=== PATIENT | male | born 1975 | race Caucasian/White ===

== ENCOUNTER 2022-07-12 10:59 | Outpatient (REF) | payer OTHER, SELFPAY ==
[2022-07-13 05:15] LABS: HBS Num1 3.37 mIU/mL (0-7.99); HBsAGNum1 0.16 S/CO (0.00-0.99); HIV AB/AG Nonreactive (Nonreactive); HIV Num 1 0.08 S/CO (0.00-0.99); Hepatitis B Core Antibody Nonreactive (Nonreactive); Hepatitis B Surface Antigen Negative (Negative); ~HepC Num1 0.07 S/CO (0.00-0.79); ~Hepatitis B Surface Antibody NONREACTIVE (Nonreactive); ~Hepatitis C Antibody Nonreactive (Nonreactive)
[2022-07-13 05:46] LABS: Syphilis Screen Nonreactive (Nonreactive)
== END 2022-07-12 11:00 | disposition home or self-care (01) ==
LOC: HO.WFDLDS 10:59
PROVIDERS: Visit Provider Nurse Practitioner Family
DX: Z11.3 Encounter for screening for infections with a predominantly sexual mode of transmission (principal); Z11.4 Encounter for screening for human immunodeficiency virus [HIV]
CPT/HCPCS: 36415; 86704; 86706; 86780; 86803; 87340; 87389

== ENCOUNTER 2022-07-12 10:59 | Outpatient (REF) | payer OTHER, SELFPAY ==
[2022-07-12 15:35] LABS: CT PCR NOT DETECTED (Not Detect.); NG PCR NOT DETECTED (Not Detect.)
== END 2022-07-12 11:00 | disposition home or self-care (01) ==
LOC: HO.LAB 10:59
PROVIDERS: Visit Provider Nurse Practitioner Family
DX: Z11.3 Encounter for screening for infections with a predominantly sexual mode of transmission (principal)
CPT/HCPCS: 87491; 87591

== ENCOUNTER 2023-03-17 10:18 | Outpatient (REF) | payer OTHER, SELFPAY ==
[2023-03-17 10:29] LABS: MANUAL DIFF FLAG NO
[2023-03-17 10:59] LABS: Basophils Percent Auto 0.4 % (0-2); Eosinophils Absolute Auto 0.1 X10*3/uL (0.0-0.4); Eosinophils Percent Auto 1.8 % (0-4); Hematocrit 46.4 % (42.0-52.0); Hemoglobin 15.1 g/dl (14.0-18.0); Imm Gran Abs Auto 0.02 X10*3/uL (0.00-0.03); Imm Gran Pct Auto 0.4 % (0.0-0.4); Lymphocytes Absolute Auto 1.3 X10*3/uL (1.2-4.9); Lymphocytes Percent Auto 26.2 % (20-40); Mean Corpuscular HGB Conc 32.5 g/dl (31.0-36.0); Mean Corpuscular Hemoglobin 29.8 pg (27.0-33.0); Mean Corpuscular Volume 91.7 fL (80.0-98.0); Mean Platelet Volume 10.8 fL (9.4-12.4); Monocytes Absolute Auto 0.5 X10*3/uL (0.1-1.2); Monocytes Percent Auto 9.5 % (2-11); Neutrophils Percent Auto 61.7 % (45-73); Platelet Count 171 X10*3/uL (160-400); Red Blood Count 5.06 X10*6/uL (4.60-5.80); Red Cell Distribution Width 12.4 % (11.0-16.0); White Blood Count 4.9 X10*3/uL (4.8-10.8)
[2023-03-17 11:59] LABS: Alanine Aminotransferase 31 U/L (0-40); Albumin Level 4.4 g/dL (3.5-5.0); Alkaline Phosphatase 89 U/L (39-117); Anion Gap 11 (12-20); Aspartate Amino Transferase 25 U/L (5-37); Bilirubin Total 0.7 mg/dL (0.0-1.0); Blood Urea Nitrogen 28 mg/dL (9-16); Calcium 9.5 mg/dL (8.4-10.2); Carbon Dioxide 29 mmol/L (22-29); Chloride 106 mmol/L (96-108); Cholesterol 251 mg/dL; Estimated Glomerular Filt Rate > 60; Glucose Random 93 mg/dL (60-115); HDL Cholesterol 60 mg/dL; LDL Cholesterol Calculated 173 mg/dl; Potassium 4.4 mmol/L (3.3-5.1); Sodium 142 mmol/L (135-145); Total Protein 7.4 g/dL (6.5-8.0); Triglycerides 93 mg/dL
[2023-03-17 12:27] LABS: Folate 19.9 ng/mL (> or = 4.0); Free T4 (Free Thyroxine) 0.87 ng/dL (0.71-1.85); Thyroid Stimulating Hormone 1.84 uIU/mL (0.32-4.0); Vitamin B12 570 pg/mL (200-900)
== END 2023-03-17 10:19 | disposition home or self-care (01) ==
LOC: HO.LAB 10:18
PROVIDERS: PCP Internal Medicine; Visit Provider Internal Medicine
DX: I10 Essential (primary) hypertension (principal); E78.00 Pure hypercholesterolemia, unspecified
CPT/HCPCS: 36415; 80053; 80061; 82607; 82746; 84439; 84443; 85025

== ENCOUNTER 2023-05-08 14:24 | Outpatient (AMB) | payer OTHER, SELFPAY ==
[2023-05-08 14:28] VITALS: BMI 25.6
--- NOTE | 2023-05-08 14:28 | MHC.PC.OV ---
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 Accompanied by: Self / Same As Patient Allergies ciprofloxacin [Cipro] Allergy (Unknown, Verified 05/08/23 14:36) joint pain Tobacco use date assessed: 05/08/23 Dental Screening Dental Screen Date: 05/08/23 Did you have a dental visit in the last 12 months?: Yes Did you have a dental problem in the last 6 months where you did not have access to dental care?: No Was dental information given to patient?: Patient has dentist HPI HTN, CARMELITA HPI Details 47-year-old male with GERD hypertension generalized anxiety disorder migraine coming in for follow-up last seen for physical exam in February 2023 blood work was requested and referral to Gastroenterology patient has been started on sertraline metoprolol and rizatriptan. [facility] Medical History (Updated 05/08/23 @ 14:53 by Janene Zheng MD) Blood pressure elevated without history of HTN Chlamydia GERD (gastroesophageal reflux disease) Gonorrhea Hepatitis B surface antigen positive by [facility] History of chlamydia Migraine Renal calculi Routine screening for STI (sexually transmitted infection) Varicocele Family History Mother Uterine cancer Father No problems noted. Sister Substance use disorder Mental health disorder Social History Housing: House Patient Tobacco Use Status: Former Tobacco user Tobacco use type: Cigarette e-Cigarette/Vaping Use: Never Used Second Hand Smoke Exposure: No Current occupational status: employed Cognitive needs: No Hearing needs: No Vision needs: No Questionnaire PHQ-9 Over the last 2 weeks, how often have you been bothered by any of the following problems? 1. Little interest or pleasure in doing things: not at all 2. Feeling down, depressed, or hopeless: not at all 3. Trouble falling or staying asleep, or sleeping too much: not at all 4. Feeling tired or having little energy: not at all 5. Poor appetite or overeating: not at all 6. Feeling bad about yourself - or that you are a failure or have let yourself or your family down: not at all 7. Trouble concentrating on things, such as reading the newspaper or watching television: not at all 8. Moving or speaking so slowly that other people could have noticed. Or the opposite - being so fidgety or restless that you have been moving around a lot more than usual: not at all 9. Thoughts that you would be better off or of hurting yourself in some way: not at all Total score: 0 Depression Screening Interpretation: Negative Source: Developed by Drs. Mathew Nieves, Caitie Rubio, Francisco Maya and colleagues, with an educational remy from [employer]. Thrive Questionnaire Date Thrive assessed: 05/08/23 I am a: Patient What is your living situation today?: I have a steady place to live Within the past 12 months, did the food you bought not last and you didn't have the money to get more?: Never true Within the past 12 months, did you worry whether your food would run out before you got money to buy more?: Never true Do you have trouble paying for medicines?: No Do you have trouble getting transportation to medical appointments?: No Do you have trouble paying your heating and electricity bill?: No Do you have trouble taking care of your child, family member or friend?: No Do you have trouble with day-to-day activities such as bathing, preparing meals, shopping, managing finances, etc.?: No Are you currently unemployed and looking for a job?: No Are you interested in more education?: No Currently or been in a relationship where the following occur: no concerns reported AUDIT C Alcohol Use Questionnaire (AUDIT-C) 1. How often do you have a drink containing alcohol?: Monthly or less 2. How many drinks containing alcohol do you have on a typical day when you are drinking?: 1 or 2 3. How often do you have six or more drinks on one occasion?: Never Total Score: 1 CARMELITA-7 AMB Questionnaire CARMELITA-7 Date CARMELITA - 7 assessed: 05/08/23 Feeling nervous, anxious, or on edge: 2 = More than half the days Not being able to stop or control worryin = More than half the days Worrying too much about different things: 2 = More than half the days Trouble relaxin = More than half the days Being so restless that it is hard to sit still: 2 = More than half the days Becoming easily annoyed or irritable: 2 = More than half the days Feeling afraid as if something awful might happen: 1 = Several days Total CARMELITA-7 score (0-4 normal; 5-9 mild; 10-14 moderate; 15-21 severe): 13 Source: Developed by Drs. Mathew Nieves, Caitie Rubio, Francisco Maya and colleagues, with an educational remy from [employer]. Physical exam (Primary Care) Vital Signs: Last Vital Signs Pulse 60 05/08/23 14:35 BP 138/88 05/08/23 14:35 Pulse Ox 99 05/08/23 14:35 Oxygen Delivery Method Room Air 05/08/23 14:35 BMI result Body Mass Index 25.6 Tobacco/Smoking Status: Tobacco use Status Tobacco use date assessed 05/08/23 05/08/23 14:29 Patient Tobacco Use Status Former Tobacco user 05/08/23 14:29 Tobacco use type Cigarette 05/08/23 14:29 e-Cigarette/Vaping Use Never Used 05/08/23 14:29 PHQ-9: PHQ-9 Score PHQ-9: Total score 0 05/08/23 14:42 Depression Screening Interpretation: Negative Thrive Assessment: Date of Thrive Assessment Date Thrive assessed 05/08/23 05/08/23 14:29 Currently or been in a relationship where the following occur: no concerns reported Const General: alert; No acute distress Eyes Conjunctivae: conjunctivae normal Resp Auscultation: clear to auscultation bilaterally Cardio Rate: regular rate Rhythm: regular rhythm GI Inspection: Yes normal to inspection Extrem General: Yes normal to inspection and No edema Assessment and Plan Assessment & Plan (1) Hypercholesterolemia: Code(s): E78.00 - Pure hypercholesterolemia, unspecified Plan: Avoid fried foods, chicken skin, eggs, butter margarine, pastries and meat. Be it pork or beef they have a lot of cholesterol LDL goal of less than 130 and triglyceride of less than 150 (2) HTN (hypertension): Code(s): I10 - Essential (primary) hypertension Plan: Continue with blood pressure medication. Decrease salt intake and exercise patient is on metoprolol 25 mg once a day (3) Migraine: Code(s): G43.909 - Migraine, unspecified, not intractable, without status migrainosus Plan: Continue with migraine medication as needed (4) GERD (gastroesophageal reflux disease): Code(s): K21.9 - Gastro-esophageal reflux disease without esophagitis Plan: Avoid the foods that causes that usually spicy foods, tomato products, juices, coffee, soda and foods that your sensitive to. After eating do not lie down, allow 3-4 hours before in lie down. And keep the head of bed above 30 degrees to avoid the acid from going up. (5) Generalized anxiety disorder: Comment: Declined counseling Code(s): F41.1 - Generalized anxiety disorder Plan: Continue with therapy Orders: Orders Comprehensive Met. Panel 3 Months E78.00 - Pure hypercholesterolemia, unspecified Lipid Panel 3 Months E78.00 - Pure hypercholesterolemia, unspecified Coding Level of Care Code Est Pt Level 4 (76727) Diagnoses Hypercholesterolemia E78.00 HTN (hypertension) I10 Migraine G43.909 GERD (gastroesophageal reflux disease) K21.9 Generalized anxiety disorder F41.1
[2023-05-08 14:35] VITALS: BP 138/88; PULSE 60; O2SAT 99; BMI 25.6
== END 2023-05-08 15:05 | disposition home or self-care (01) ==
PROVIDERS: PCP Internal Medicine; Visit Provider Internal Medicine
DX: E78.00 Pure hypercholesterolemia, unspecified (principal); I10 Essential (primary) hypertension; G43.909 Migraine, unspecified, not intractable, without status migrainosus; K21.9 Gastro-esophageal reflux disease without esophagitis; F41.1 Generalized anxiety disorder
CPT/HCPCS: 99214

== ENCOUNTER 2023-08-02 08:35 | Outpatient (AMB) | payer OTHER, SELFPAY ==
--- NOTE | 2023-08-02 08:42 | A.OFFVIS_ITS ---
Intake Vital Signs 08/02/23 08:44 Height 5 ft 9 in Weight 176 lb BMI 26.0 BP 135/88 Blood Pressure Location Lt brachial Position Sitting Pulse 82 Intake Visit Reasons: Colonoscopy Screening Intake Note: Patient new consult for 2nd pre colonoscopy screening. Patient 1st [place] was at [facility] with polyps out, denies any GI issues. 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 male here today for pre col onoscopy screening.? Patient was sent to us by his PCP.? This is his/her patient reports that he had colonoscopy in the past about 7 years ago or so. It was diagnostic to investigate right-sided abdominal pain. Polyps found. Today he is here for colo screening.? Patient denies any gastrointestinal symptoms in the past or at present.? Patient takes omeprazole daily and reports that his symptoms of acid reflux are suppressed. Denies history of difficulty with sedation or anesthesia in the past, however patient reports that it took long time for him to awake up when he had his last colonoscopy. Negative for history of sleep apnea.? Denies any history of cardiac, renal, pulmonary, or hepatic disease.?? No history of infectious? diseases like hepatitis A, B, C, HIV or tuberculosis.? Patient is not on any anticoagulation therapy. COUNTS INCLUDE 234 BEDS AT THE [facility] Medical History (Updated 08/02/23 @ 09:06 by Suri Puentes, [facility]) Blood pressure elevated without history of HTN History of chlamydia Hepatitis B surface antigen positive by [facility] Varicocele Renal calculi Migraine GERD (gastroesophageal reflux disease) Gonorrhea Chlamydia Routine screening for STI (sexually transmitted infection) Family History Mother Uterine cancer Father No problems noted. Sister Substance use disorder Mental health disorder Social History Housing: House Patient Tobacco Use Status: Former Tobacco user Tobacco use type: Cigarette e-Cigarette/Vaping Use: Never Used Second Hand Smoke Exposure: No Current occupational status: employed Cognitive needs: No Hearing needs: No Vision needs: No Review of Systems Const Denies weight gain and Denies weight loss ENT Reports no additional complaints, Denies dysphagia and Denies odynophagia Card Reports no additional complaints Resp Reports no additional complaints GI Denies abdominal pain, Denies belching, Denies melena, Denies bloating, Denies change in bowel habits, Denies dysphagia, Denies excessive flatus, Denies dyspepsia, Denies heartburn, Denies diarrhea, Denies loose stools, Denies nausea, Denies odynophagia and Denies vomiting Reports no additional complaints Musc Reports no additional complaints Neuro Reports no additional complaints Psych Reports no additional complaints Endo Reports no additional complaints Physical Exam Vital Signs: Last Vital Signs Pulse 82 08/02/23 08:44 BP 135/88 08/02/23 08:44 BMI result Body Mass Index 26.0 Const General: healthy appearing, no acute distress and well developed Nutritional Appearance: well nourished Orientation/consciousness: patient oriented x3 HEENT Head: Yes normal to inspection, Yes normocephalic and Yes atraumatic Face and sinus: Yes normal facial exam Mouth: Normal oral and palatal mucosa present Throat: Yes posterior oropharynx normal, Yes tonsils normal and Yes uvula midline Eyes General: appearance normal, both eyes and all related structures Neck Neck: Yes normal visual inspection, Yes full ROM and Yes trachea midline Thyroid: Thyroid normal Resp Effort & Inspection: normal respiratory effort, able to speak in complete sentences, no tracheal deviation and symmetric chest movement Auscultation: clear to auscultation bilaterally Cardio Rate: regular rate Heart sounds: S1 normal heart sound present and S2 normal heart sound present GI Inspection: Yes normal to inspection and No distended Palpation (GI): Soft to palpation, not firm, nontender and No hepatosplenomegaly present Auscultation: normal bowel sounds General: Yes no CVA tenderness Back/Spine/Pelvis Back: no CVA tenderness Skin General skin exam: elasticity normal, turgor normal and dry skin Neuro General: patient oriented x3 Psych Appearance: grossly normal Mental Status: mental status grossly normal Assessment & Plan Assessment & Plan (1) Colon cancer screening: Code(s): Z12.11 - Encounter for screening for malignant neoplasm of colon (2) GERD (gastroesophageal reflux disease): Code(s): K21.9 - Gastro-esophageal reflux disease without esophagitis Qualifiers: Esophagitis presence: esophagitis presence not specified Qualified Code(s): K21.9 - Gastro-esophageal reflux disease without esophagitis Plan Patient denies any GI, cardiac or respiratory symptoms.? Patient reports that symptoms of acid reflux are suppressed with omeprazole. Denies any issues with anesthesia in the past.? Denies any history of sleep apnea.? No history infectious diseases in the past or present.? Not on any anticoagulation therapy.? No family or personal history of colon cancer or polyps.? Patient denies melena, hematochezia, unintentional weight loss or ribbon like stools.? Discussed at length the pre-procedure,? prep, diet & medications as well as what to expect prior, during and after the procedure.?? Stressed the importance of good bowel prep. ?Recommended the use of Vaseline or Calmoseptine OTC & baby wipes with bowel movements to promote comfort.? ?Patient verbalizes understanding and agrees to plan of care.? He was given the opportunity to ask questions and all questions answered.? We will see him after the procedure.? Medications: New bisacodyl (Dulcolax (bisacodyl)) take 2 tabs at noon the day before your colonoscopy 10 mg (2 x 5 mg) PO ONCE 2 tabs 0RF 1 day Z12.11 - Encounter for screening for malignant neoplasm of colon polyethylene glycol 3350 (Miralax) As directed by gastroenterology department at [facility] 238 grams PO ONCE 238 grams 0RF Z12.11 - Encounter for screening for malignant neoplasm of colon Coding Level of Care Code New Pt Level 3 (88832) Diagnoses Colon cancer screening Z12.11 Gastroesophageal reflux disease, unspecified whether esophagitis present K21.9 Esophagitis presence: esophagitis presence not specified Time Spent (min) 40 Comment 30 minutes spent with patient and additional 10 minutes spent reviewing his records
[2023-08-02 08:44] VITALS: BP 135/88; PULSE 82; BMI 26.0
== END 2023-08-02 09:13 | disposition home or self-care (01) ==
PROVIDERS: PCP Internal Medicine; Visit Provider Nurse Practitioner Family
DX: Z12.11 Encounter for screening for malignant neoplasm of colon (principal); K21.9 Gastro-esophageal reflux disease without esophagitis; Z01.818 Encounter for other preprocedural examination
CPT/HCPCS: 99203

== ENCOUNTER → 2023-08-02 08:35 | Outpatient (BNVA) | payer OTHER, SELFPAY | PROVIDERS: PCP Internal Medicine; Visit Provider Nurse Practitioner Family ==

== ENCOUNTER 2023-12-15 11:10 | Day surgery (SDC) | payer OTHER, SELFPAY ==
--- NOTE | 2023-12-14 12:11 | P.CONAN_ITS ---
Documented by User: Christelle Morrison NP 12/14/23 12:11 HPI - Anesthesia Eval Consult details Narrative: 48yo M for Colonoscopy [facility] Active Problems Active Problems: All Active Problems (Updated 08/02/23 @ 09:06 [facility] Hypercholesterolemia (Acute) Colon cancer screening (Acute) Generalized anxiety disorder (Acute) HTN (hypertension) (Acute) Annual physical exam (Acute) Migraine (Acute) GERD (gastroesophageal reflux disease) (Acute) COVID-19 virus infection (Acute) Past Medical History Medical History (Updated 08/02/23 @ 09:06 [facility] Blood pressure elevated without history of HTN History of chlamydia Hepatitis B surface antigen positive by [facility] Varicocele Renal calculi Migraine GERD (gastroesophageal reflux disease) Gonorrhea Chlamydia Routine screening for STI (sexually transmitted infection) Family History Family History Mother Uterine cancer Father No problems noted. Sister Substance use disorder Mental health disorder Social History Social History Housing: House Patient Tobacco Use Status: Former Tobacco user Tobacco use type: Cigarette e-Cigarette/Vaping Use: Never Used Second Hand Smoke Exposure: No Are you DNR?: No Advance Directives: No Advance Directives Information Provided: Yes Nutrition Risks: No Nutritional Risk Current occupational status: employed Cognitive needs: No Hearing needs: No Vision needs: No Meds Allergies Allergy/AdvReac Type Severity Reaction Status Date / Time ciprofloxacin [Cipro] Allergy Unknown joint pain Verified 08/02/23 08:41 Home Medications Medication Instructions Recorded Confirmed Last Taken Type multivitamin 1 tab PO DAILY 03/02/23 03/02/23 Unknown History omeprazole 20 mg capsule,delayed 20 mg PO DAILY 03/02/23 03/02/23 Unknown History release Assessment and Plan Assessment Anesthesia Assessment: Chart Reviewed Documented by User: Renae Lopez MD 12/15/23 12:58 [facility] Past Medical History Medical History (Updated 08/02/23 @ 09:06 by Suri Puentes, [facility]) Blood pressure elevated without history of HTN History of chlamydia Hepatitis B surface antigen positive by [facility] Varicocele Renal calculi Migraine GERD (gastroesophageal reflux disease) Gonorrhea Chlamydia Routine screening for STI (sexually transmitted infection) Family History Family History Mother Uterine cancer Father No problems noted. Sister Substance use disorder Mental health disorder Family history of problems with anesthesia: No Surgical History History of Problems with Anesthesia: No Social History Social History Housing: House Patient Tobacco Use Status: Former Tobacco user Tobacco use type: Cigarette e-Cigarette/Vaping Use: Never Used Second Hand Smoke Exposure: No Are you DNR?: No Advance Directives: No Advance Directives Information Provided: Yes Nutrition Risks: No Nutritional Risk Current occupational status: employed Cognitive needs: No Hearing needs: No Vision needs: No Meds Allergies Allergy/AdvReac Type Severity Reaction Status Date / Time ciprofloxacin [Cipro] Allergy Unknown joint pain Verified 08/02/23 08:41 Home Medications Medication Instructions Recorded Confirmed Last Taken Type multivitamin 1 tab PO DAILY 03/02/23 03/02/23 Unknown History omeprazole 20 mg capsule,delayed 20 mg PO DAILY 03/02/23 03/02/23 Unknown History release Exam Airway Mallampati Class: II TM Dist: >3cm Neck ROM: Full Heart: rrr Lungs: cta Assessment and Plan Assessment Anesthesia Assessment: Anesthesia Plan Discussed Final Anesthetic Review Family History of Problems with Anesthesia: No History of Problems with Anesthesia: No NPO: Yes ASA Class: II Final Preanesthetic Review: No Changes in Pt Med Stat, Meds/Allgs Chart Reviewed and Consent Obtained/Reviewed Patient Risk: Low Procedure Risk: Low Anesthetic Plan Anesthetic Plan: MAC: Disposition: Standard PACU
[2023-12-15 11:52] VITALS: BP 146/117; PULSE 87; RESP 20; TEMP 36.1; O2SAT 98; BMI 26.6
[2023-12-15 12:08] VITALS: BP 136/81
[2023-12-15] MEDS: Lactated Ringers 1,000 ML 100 ML IVCONT (12:16)
--- NOTE | 2023-12-15 13:02 | MHC.SHP ---
Pre-Procedural Eval Section A - 24 Hr Update-Section A only Date of Service: 12/15/23 The patient is an INPATIENT: No The patient has been examined within 24 hours of the surgical procedure. The History & Physical has been completed within 30 days and I have reviewed it.: No Section B - Complete if H&P > 30 days Chief Complaint: Surveillance for colon polyps Relevant Family History (Specify if Yes): No Relevant Social History: Tobacco Use (former smoker) Present Medications: see Short Stay Collaborative assessment Medical History: Significant History (Blood pressure elevated without history of HTN History of chlamydia Hepatitis B surface antigen positive by [facility] Varicocele Renal calculi Migraine GERD (gastroesophageal reflux disease) Gonorrhea Chlamydia) History of Previous Operations: Relevant previous surgery/procedure and date(s) (History of colonoscopy) Allergies: Allergies Allergy/AdvReac Type Severity Reaction Status Date / Time ciprofloxacin [Cipro] Allergy Unknown joint pain Verified 08/02/23 08:41 Review of Systems Sugical H&P ROS: Negative: Constitution, Cardiovascular, Respiratory and Gastrointestinal Exam Surgical H&P Exam: Normal: Heart, Normal: Lungs, Normal: Extremities and Normal: Abdomen Plan Diagnosis/Plan: Unchanged I have reviewed the history and physical and performed a pertinent physical examination on my patient. No changes have occurred unless specified. Time Spent With Patient Time: Total time managing care of this patient today ____ minutes.
--- NOTE | 2023-12-15 13:46 | W.PM.OPN ---
Operative Note Operative Note Date of Service: 12/15/23 Narrative: COLONOSCOPY TILL CECUM WITH BIOPSIES Pre-op diagnosis: Surveillance for colon polyps. Post-op diagnosis:? Colon polyp, diverticulosis, hemorrhoids Endoscopist:? Raymond Yang MD Anesthesia:?MAC Consent: Indications for the procedure and potential complications of bleeding, perforation, reaction to medications and missed diagnosis were discussed with the patient and informed consent was obtained. Instrument: Olympus CF H 190 L variable stiffness adult colonoscope Monitoring: Vital signs and clinical assessment, intermittent blood pressure monitoring, continuous EKG monitoring, Pulse oximetry and Carbon Dioxide monitoring were done throughout the procedure. Please see anesthesia flowsheet. Colon withdrawl time was 22 minutes. Procedure: The patient was placed in the left lateral decubitis position and pre-procedure medications were administered. After a digital rectal examination of the ano-rectum, the video colonoscope was inserted into the rectum and advanced through the colon to the cecum. The colonoscope was slowly withdrawn in a retrograde panoramic fashion and the colon mucosa was carefully examined including a retroflexed view of the rectum. Findings and interventions are described below. Procedure Difficulty: Without difficulty Findings: Terminal Ileum: Not evaluated Cecum: Normal Ascending Colon: Normal Transverse Colon: Two 8-10 mm sessile polyps - removed with a cold snare. Three 4-5 mm diminutive appearing polyps - removed with a cold biopsy Descending Colon: Moderate diverticulosis Sigmoid Colon: A 4-5 mm sessile polyp - removed with a cold biopsy. Moderate diverticulosis Rectum: Normal Ano-rectum: Moderate internal hemorrhoids Colon preparation: Excellent after some irrigation [place] Bowel Preparation Scale Right colon; 3 Transverse colon: 3 Left colon; 3 (0 = Unprepared colon segment with mucosa not seen due to solid stool that cannot be cleared. 1 = Portion of mucosa of the colon segment seen, but other areas of the colon segment not well seen due to staining, residual stool and/or opaque liquid. 2 = Minor amount of residual staining, small fragments of stool and/or opaque liquid, but mucosa of colon segment seen well. 3 = Entire mucosa of colon segment seen well with no residual staining, small fragments of stool or opaque liquid) Impression and Post Procedure Diagnosis: Colonoscopy Findings: Four small and two medium sized polyp removed Moderate diverticulosis seen in the left colon Moderate hemorrhoids on retroflexed exam. Plan: I will send a letter with pathology results. Pt has a FU appointment on 12/29/23 with Belia Puentes NP Repeat Colonoscopy interval based on path results - in 3-5 years if polyps are adenomatous and due to a history of adenomatous colon polyps.. Colon polyps and diverticulosis handouts were given in the discharge area.
[2023-12-15 14:32] VITALS: BP 101/73; PULSE 74; RESP 16; TEMP 36.3; O2SAT 95
[2023-12-15 14:47] VITALS: BP 110/75; PULSE 82; RESP 18; TEMP 36.9; O2SAT 97
[2023-12-15 15:02] VITALS: BP 121/90; PULSE 83; RESP 20; TEMP 36.3; O2SAT 98
== END 2023-12-15 15:33 | disposition home or self-care (01) ==
PROVIDERS: PCP Internal Medicine; Visit Provider Internal Medicine Gastroenterology
PROC: 0DJD8ZZ Inspection of Lower Intestinal Tract, Via Natural or Artificial Opening Endoscopic (ICD-10-PCS; CPT 45378; principal; 2023-12-15 13:00)
DX: Z12.11 Encounter for screening for malignant neoplasm of colon (principal); D12.3 Benign neoplasm of transverse colon; K57.30 Diverticulosis of large intestine without perforation or abscess without bleeding; K64.8 Other hemorrhoids; K21.9 Gastro-esophageal reflux disease without esophagitis; Z79.899 Other long term (current) drug therapy
CPT/HCPCS: 45385; 45380; 88305; J2250; J2704

== ENCOUNTER → 2023-12-15 11:10 | Outpatient (BNV) | payer OTHER, SELFPAY | PROVIDERS: PCP Internal Medicine; Visit Provider Internal Medicine Gastroenterology | DX: Z12.11 Encounter for screening for malignant neoplasm of colon (principal); K63.5 Polyp of colon; K57.90 Diverticulosis of intestine, part unspecified, without perforation or abscess without bleeding; K64.8 Other hemorrhoids; Z86.010 Personal history of colon polyps | CPT/HCPCS: 45380; 45385 ==

== ENCOUNTER 2023-12-29 10:25 | Outpatient (AMB) | payer OTHER, SELFPAY ==
[2023-12-29 10:30] VITALS: BP 150/96; PULSE 64; BMI 26.3
--- NOTE | 2023-12-29 10:30 | MHC.OFFVIS ---
Intake Vital Signs 12/29/23 10:30 Height 5 ft 9 in Weight 178 lb BMI 26.3 BP 150/96 H Blood Pressure Location Lt brachial Position Sitting Pulse 64 Intake Visit Reasons: s/p colon Intake Note: Patient follow up for Colonoscopy results. Patient denies any GI issues. Line Runner Required: No Accompanied by: Self / Same As Patient Allergies ciprofloxacin [Cipro] Allergy (Unknown, Verified 12/29/23 10:29) joint pain HPI s/p colon HPI Details LAST VISIT Colon cancer screening GERD (gastroesophageal reflux disease) Plan Patient denies any GI, cardiac or respiratory symptoms.? Patient reports that symptoms of acid reflux are suppressed with omeprazole. Denies any issues with anesthesia in the past.? Denies any history of sleep apnea.? No history infectious diseases in the past or present.? Not on any anticoagulation therapy.? No family or personal history of colon cancer or polyps.? Patient denies melena, hematochezia, unintentional weight loss or ribbon like stools.? Discussed at length the pre-procedure,? prep, diet & medications as well as what to expect prior, during and after the procedure.?? Stressed the importance of good bowel prep. ?Recommended the use of Vaseline or Calmoseptine OTC & baby wipes with bowel movements to promote comfort.? ?Patient verbalizes understanding and agrees to plan of care.? He was given the opportunity to ask questions and all questions answered.? We will see him after the procedure.? Medications New bisacodyl (Dulcolax (bisacodyl)) take 2 tabs at noon the day before your colonoscopy 10 mg (2 x 5 mg) PO ONCE 2 tabs 0RF 1 day Z12.11 polyethylene glycol 3350 (Miralax) As directed by gastroenterology department at [facility] 238 grams PO ONCE 238 grams 0RF Z12.11 COLONOSCOPY Findings: Terminal Ileum: Not evaluated Cecum: Normal Ascending Colon: Normal Transverse Colon: Two 8-10 mm sessile polyps - removed with a cold snare. Three 4-5 mm diminutive appearing polyps - removed with a cold biopsy Descending Colon: Moderate diverticulosis Sigmoid Colon: A 4-5 mm sessile polyp - removed with a cold biopsy. Moderate diverticulosis Rectum: Normal Ano-rectum: Moderate internal hemorrhoids Colon preparation: Excellent after some irrigation Zap Bowel Preparation Scale Right colon; 3 Transverse colon: 3 Left colon; 3 (0 = Unprepared colon segment with mucosa not seen due to solid stool that cannot be cleared. 1 = Portion of mucosa of the colon segment seen, but other areas of the colon segment not well seen due to staining, residual stool and/or opaque liquid. 2 = Minor amount of residual staining, small fragments of stool and/or opaque liquid, but mucosa of colon segment seen well. 3 = Entire mucosa of colon segment seen well with no residual staining, small fragments of stool or opaque liquid) Impression and Post Procedure Diagnosis: Colonoscopy Findings: Four small and two medium sized polyp removed Moderate diverticulosis seen in the left colon Moderate hemorrhoids on retroflexed exam. Plan: Repeat Colonoscopy interval based on path results - in 3-5 years if polyps are adenomatous and due to a history of adenomatous colon polyps.. PATHOLOGY RESULTS Diagnosis A. Colon, transverse, polypectomy: Fragments of tubular adenoma; negative for high-grade dysplasia or carcinoma. B. Colon, sigmoid, polypectomy: Colonic mucosa with prominent lymphoid aggregate TODAY'S VISIT Patient is here today for follow-up and to discuss colonoscopy results. Patient denies any ill effects from the prep, anesthesia or procedure itself. Patient had 3 polyps removed from transverse colon, tubular adenoma found. Patient will need to repeat turn for colorectal screening in 3-5 years. Patient denies melena, hematochezia, unintentional weight loss or ribbon like stools. Patient denies any dyspepsia, dysphagia or odynophagia. Patient reports to be feeling well otherwise. For the most part he is moving his bowels without any issues, however occasionally patient reports that he loose stools depending on what he eats. Patient denies any other GI concerning symptoms. [facility] Medical History (Updated 12/29/23 @ 10:50 by Suri Puentes, COOLING SYSTEM OPERATOR-) Diverticulosis Tubular adenoma of colon Blood pressure elevated without history of HTN History of chlamydia Hepatitis B surface antigen positive by SHER Varicocele Renal calculi Migraine GERD (gastroesophageal reflux disease) Gonorrhea Chlamydia Routine screening for STI (sexually transmitted infection) Surgical History (Updated 12/27/23 @ 14:21 by Margret Puentes) Hx of colonoscopy Family History Mother Uterine cancer Father No problems noted. Sister Substance use disorder Mental health disorder Social History Housing: House Patient Tobacco Use Status: Former Tobacco user Tobacco use type: Cigarette e-Cigarette/Vaping Use: Never Used Second Hand Smoke Exposure: No Current occupational status: employed Cognitive needs: No Hearing needs: No Vision needs: No Review of Systems Const Denies weight gain and Denies weight loss ENT Reports no additional complaints, Denies dysphagia and Denies odynophagia Card Reports no additional complaints Resp Reports no additional complaints GI Denies abdominal pain, Denies belching, Denies melena, Denies bloating, Denies change in bowel habits, Denies dysphagia, Denies excessive flatus, Denies dyspepsia, Denies heartburn, Denies diarrhea, Reports loose stools (Occasional), Denies nausea, Denies odynophagia and Denies vomiting Reports no additional complaints Musc Reports no additional complaints Neuro Reports no additional complaints Psych Reports no additional complaints Endo Reports no additional complaints Physical Exam Vital Signs: Last Vital Signs Pulse 64 12/29/23 10:30 BP 150/96 H 12/29/23 10:30 BMI result Body Mass Index 26.3 Const General: healthy appearing, no acute distress and well developed Nutritional Appearance: well nourished Orientation/consciousness: patient oriented x3 Resp Effort & Inspection: normal respiratory effort, able to speak in complete sentences, no tracheal deviation and symmetric chest movement Auscultation: clear to auscultation bilaterally Cardio Rate: regular rate GI Inspection: Yes normal to inspection and No distended Palpation (GI): Soft to palpation, not firm, nontender and No hepatosplenomegaly present Auscultation: normal bowel sounds General: Yes no CVA tenderness Back/Spine/Pelvis Back: no CVA tenderness Skin General skin exam: elasticity normal, turgor normal and dry skin Neuro General: patient oriented x3 Psych Appearance: grossly normal Mental Status: mental status grossly normal Assessment & Plan Assessment & Plan (1) GERD (gastroesophageal reflux disease): Code(s): K21.9 - Gastro-esophageal reflux disease without esophagitis Qualifiers: Esophagitis presence: esophagitis presence not specified Qualified Code(s): K21.9 - Gastro-esophageal reflux disease without esophagitis (2) Tubular adenoma of colon: Code(s): D12.6 - Benign neoplasm of colon, unspecified (3) Diverticulosis: Code(s): K57.90 - Diverticulosis of intestine, part unspecified, without perforation or abscess without bleeding (4) Status post colonoscopy: Code(s): Z98.890 - Other specified postprocedural states Plan Tubular adenoma without high-grade dysplasia or carcinoma found in transverse colon. Moderate diverticulosis to left side of the colon. Patient will follow high-fiber diet. List of food high in fiber given to patient. Patient was also encouraged to take [id number] fiber supplements and probiotics. Colonoscopy in 3 years, sooner if clinically necessary. Patient will call our office if he will have any GI concerning symptoms. Patient is agreeable to this plan and verbalizes understanding of instructions. He was given the opportunity to ask questions and all questions answered. Thank you for allowing me to participate in his care Coding Level of Care Code Est Pt Level 3 (75092) Diagnoses Gastroesophageal reflux disease, unspecified whether esophagitis present K21.9 Esophagitis presence: esophagitis presence not specified Tubular adenoma of colon D12.6 Diverticulosis K57.90 Status post colonoscopy Z98.890 Time Spent (min) 30 Comment 20 minutes spent with patient and additional 10 minutes spent reviewing his records
== END 2023-12-29 11:14 | disposition home or self-care (01) ==
PROVIDERS: PCP Internal Medicine; Visit Provider Nurse Practitioner Family
DX: K21.9 Gastro-esophageal reflux disease without esophagitis (principal); D12.6 Benign neoplasm of colon, unspecified; K57.90 Diverticulosis of intestine, part unspecified, without perforation or abscess without bleeding; Z98.890 Other specified postprocedural states
CPT/HCPCS: 99213

== ENCOUNTER → 2023-12-29 10:25 | Outpatient (BNVA) | payer OTHER, SELFPAY | PROVIDERS: PCP Internal Medicine; Visit Provider Nurse Practitioner Family ==

== ENCOUNTER 2024-03-05 12:57 | Outpatient (AMB) | payer OTHER, SELFPAY ==
[2024-03-05 13:21] VITALS: BP 122/68; PULSE 49; O2SAT 98; BMI 26.7
--- NOTE | 2024-03-05 13:21 | A.OFFPC_ITS ---
Vital Signs 03/05/24 13:21 Height 5 ft 9 in Weight 181 lb BMI 26.7 BP 122/68 Blood Pressure Location Lt brachial Position Sitting Pulse 49 L Pulse Source Pulse Oximeter Pulse Oximetry (%) 98 Oxygen Delivery Method Room Air Intake Visit Reasons: Annual Exam Allergies ciprofloxacin [Cipro] Allergy (Unknown, Verified 03/05/24 13:21) joint pain Medication List - Last Reconciled 03/05/24 by Janene Zheng MD metoprolol succinate ER 25 mg PO DAILY multivitamin 1 tab PO DAILY omeprazole 20 mg PO DAILY rizatriptan 10 mg PO .QD PRN sertraline 25 mg PO DAILY Tobacco use date assessed: 03/05/24 Dental Screening Dental Screen Date: 03/05/24 Did you have a dental visit in the last 12 months?: Yes Did you have a dental problem in the last 6 months where you did not have access to dental care?: No Was dental information given to patient?: Patient has dentist HPI Annual Exam HPI Details 48 year old male with HTN, hypercholeste rolemia, migraine, GERD and generalized anxiety disorder coming in for physical exam. Last seen in April 2023. Patient's colonoscopy done in December 2023 tubular adenoma advised 3 years. [facility] Medical History (Updated 03/05/24 @ 13:25 by Janene Zheng MD) Colon cancer screening Diverticulosis Tubular adenoma of colon Blood pressure elevated without history of HTN History of chlamydia Hepatitis B surface antigen positive by SHER Varicocele Renal calculi Migraine GERD (gastroesophageal reflux disease) Gonorrhea Chlamydia Routine screening for STI (sexually transmitted infection) Surgical History (Updated 12/27/23 @ 14:21 by Margret Puentes) Hx of colonoscopy Family History (Updated 03/05/24 @ 13:30 by Janene Zheng MD) Mother Uterine cancer Father Myocardial infarct Sister Substance use disorder Mental health disorder Social History (Updated 03/05/24 @ 13:31 by Janene Zheng MD) Housing: House Alcohol intake: current Alcohol intake frequency: a few times a week Comment: 1 a week 2 drinks Patient Tobacco Use Status: Former Tobacco user Tobacco use type: Cigarette Years Smoked: 2004 e-Cigarette/Vaping Use: Never Used Second Hand Smoke Exposure: No Current occupational status: employed Cognitive needs: No Hearing needs: No Vision needs: No Questionnaire PHQ-9 Over the last 2 weeks, how often have you been bothered by any of the following problems? 1. Little interest or pleasure in doing things: not at all 2. Feeling down, depressed, or hopeless: not at all 3. Trouble falling or staying asleep, or sleeping too much: not at all 4. Feeling tired or having little energy: not at all 5. Poor appetite or overeating: not at all 6. Feeling bad about yourself - or that you are a failure or have let yourself or your family down: not at all 7. Trouble concentrating on things, such as reading the newspaper or watching television: not at all 8. Moving or speaking so slowly that other people could have noticed. Or the opposite - being so fidgety or restless that you have been moving around a lot more than usual: not at all 9. Thoughts that you would be better off or of hurting yourself in some way: not at all Total score: 0 Depression Screening Interpretation: Negative Depression Screening Done: Yes Source: Developed by Drs. Mathew Nieves, Caitie Rubio, Francisco Maya and colleagues, with an educational remy from [employer]. Thrive Questionnaire Date Thrive assessed: 03/05/24 I am a: Patient What is your living situation today?: I have a steady place to live Within the past 12 months, did the food you bought not last and you didn't have the money to get more?: Never true Within the past 12 months, did you worry whether your food would run out before you got money to buy more?: Never true Do you have trouble paying for medicines?: No Do you have trouble getting transportation to medical appointments?: No Do you have trouble paying your heating and electricity bill?: No Do you have trouble taking care of your child, family member or friend?: No Do you have trouble with day-to-day activities such as bathing, preparing meals, shopping, managing finances, etc.?: No Are you currently unemployed and looking for a job?: No Are you interested in more education?: No Currently or been in a relationship where the following occur: no concerns reported THRIVE Score: 0 AUDIT C Alcohol Use Questionnaire (AUDIT-C) 1. How often do you have a drink containing alcohol?: Monthly or less 2. How many drinks containing alcohol do you have on a typical day when you are drinking?: 1 or 2 3. How often do you have six or more drinks on one occasion?: Never Total Score: 1 CARMELITA-7 AMB Questionnaire CARMELITA-7 Date CARMELITA - 7 assessed: 03/05/24 Feeling nervous, anxious, or on edge: 2 = More than half the days Not being able to stop or control worryin = More than half the days Worrying too much about different things: 2 = More than half the days Trouble relaxin = More than half the days Being so restless that it is hard to sit still: 2 = More than half the days Becoming easily annoyed or irritable: 2 = More than half the days Feeling afraid as if something awful might happen: 1 = Several days Total CARMELITA-7 score (0-4 normal; 5-9 mild; 10-14 moderate; 15-21 severe): 13 Source: Developed by Drs. Mathew Nieves, Caitie Rubio, Francisco Maya and colleagues, with an educational remy from [employer]. Review of Systems Const Denies poor appetite and Denies weakness Eyes Denies no additional complaints ENT Reports Normal hearing present, Denies dizziness, Denies nasal congestion, Denies tinnitus and Denies sore throat Card Denies chest pain, Denies syncope, Denies rapid heart rate and Denies dyspnea Resp Denies cough and Denies dyspnea GI Denies change in stool character, Reports constipation, Denies diarrhea, Denies nausea and Denies vomiting Denies dysuria and Denies urinary frequency Neuro Reports Normal hearing present, Denies confusion, Denies dizziness, Denies syncope and Denies weakness Psych Denies confusion Physical exam (Primary Care) Vital Signs: Oxygen Delivery Method Room Air 03/05/24 13:21 Tobacco/Smoking Status: Tobacco use Status Tobacco use date assessed 05/08/23 05/08/23 14:29 Patient Tobacco Use Status Former Tobacco user 12/15/23 14:27 Tobacco use type Cigarette 05/08/23 14:29 e-Cigarette/Vaping Use Never Used 05/08/23 14:29 Depression Screening Interpretation: Negative Thrive Assessment: Date of Thrive Assessment Date Thrive assessed 05/08/23 05/08/23 14:29 Currently or been in a relationship where the following occur: no concerns reported Const General: No confusion Orientation/consciousness: No confusion Neuro General: No confusion Cranial nerves: Yes Normal hearing present Assessment and Plan Assessment & Plan (1) Annual physical exam: Code(s): Z00.00 - Encounter for general adult medical examination without abnormal findings (2) HTN (hypertension): Code(s): I10 - Essential (primary) hypertension Plan: Continue with blood pressure medication. Decrease salt intake and exercise on metoprolol 25 mg once a day (3) Tubular adenoma of colon: Comment: December 2023 Code(s): D12.6 - Benign neoplasm of colon, unspecified Plan: Patient was advised to get the test done in 3 years (4) Hypercholesterolemia: Code(s): E78.00 - Pure hypercholesterolemia, unspecified Plan: Avoid fried foods, chicken skin, eggs, butter margarine, pastries and meat. Be it pork or beef they have a lot of cholesterol will repeat test LDL goal of less than 130 and triglyceride of less than 150 ASCVD risk 3.1 in 10 years but lifetime 69% (5) Generalized anxiety disorder: Comment: Declined counseling Code(s): F41.1 - Generalized anxiety disorder Plan: Continue with present medication (6) Migraine: Code(s): G43.909 - Migraine, unspecified, not intractable, without status migrainosus Plan: Continue with migraine medication, have adequate sleep stress medication (7) GERD (gastroesophageal reflux disease): Code(s): K21.9 - Gastro-esophageal reflux disease without esophagitis Qualifiers: Esophagitis presence: esophagitis presence not specified Qualified Code(s): K21.9 - Gastro-esophageal reflux disease without esophagitis Plan: Avoid the foods that causes that usually spicy foods, tomato products, juices, coffee, soda and foods that your sensitive to. After eating do not lie down, allow 3-4 hours before in lie down. And keep the head of bed above 30 degrees to avoid the acid from going up. Orders: Orders Complete Blood Count Auto Diff Today E78.00 - Pure hypercholesterolemia, unspecified Comprehensive Met. Panel Today E78.00 - Pure hypercholesterolemia, unspecified Free T4 (Free Thyroxine) Today E78.00 - Pure hypercholesterolemia, unspecified Thyroid Stimulating Hormone Today E78.00 - Pure hypercholesterolemia, unspecified Lipid Panel Today E78.00 - Pure hypercholesterolemia, unspecified Vitamin B12 and Folate Today E78.00 - Pure hypercholesterolemia, unspecified Coding Level of Care Code Est Pt Prev Care 40-64y(48026) Diagnoses Annual physical exam Z00.00 HTN (hypertension) I10 Tubular adenoma of colon D12.6 Hypercholesterolemia E78.00 Generalized anxiety disorder F41.1 Migraine G43.909 Gastroesophageal reflux disease, unspecified whether esophagitis present K21.9 Esophagitis presence: esophagitis presence not specified
== END 2024-03-05 13:49 | disposition home or self-care (01) ==
PROVIDERS: Visit Provider Internal Medicine
DX: Z00.00 Encounter for general adult medical examination without abnormal findings (principal); I10 Essential (primary) hypertension; D12.6 Benign neoplasm of colon, unspecified; E78.00 Pure hypercholesterolemia, unspecified; F41.1 Generalized anxiety disorder; G43.909 Migraine, unspecified, not intractable, without status migrainosus; K21.9 Gastro-esophageal reflux disease without esophagitis
CPT/HCPCS: 99396

== ENCOUNTER 2024-05-24 13:34 | Outpatient (REF) | payer OTHER, SELFPAY ==
[2024-05-24 13:44] LABS: MANUAL DIFF FLAG NO
[2024-05-24 14:08] LABS: Basophils Percent Auto 0.6 % (0-2); Eosinophils Absolute Auto 0.1 X10*3/uL (0.0-0.4); Eosinophils Percent Auto 1.9 % (0-4); Hematocrit 46.1 % (42.0-52.0); Hemoglobin 15.7 g/dl (14.0-18.0); Imm Gran Abs Auto 0.01 X10*3/uL (0.00-0.03); Imm Gran Pct Auto 0.2 % (0.0-0.4); Lymphocytes Absolute Auto 1.5 X10*3/uL (1.2-4.9); Lymphocytes Percent Auto 28.1 % (20-40); Mean Corpuscular HGB Conc 34.1 g/dl (31.0-36.0); Mean Corpuscular Hemoglobin 30.6 pg (27.0-33.0); Mean Corpuscular Volume 89.9 fL (80.0-98.0); Mean Platelet Volume 10.3 fL (9.4-12.4); Monocytes Absolute Auto 0.5 X10*3/uL (0.1-1.2); Monocytes Percent Auto 9.9 % (2-11); Neutrophils Absolute Auto 3.1 x10*3/uL (2.0-8.3); Neutrophils Percent Auto 59.3 % (45-73); Platelet Count 189 X10*3/uL (160-400); Red Blood Count 5.13 X10*6/uL (4.60-5.80); Red Cell Distribution Width 12.1 % (11.0-16.0); White Blood Count 5.3 X10*3/uL (4.8-10.8)
[2024-05-24 14:57] LABS: Alanine Aminotransferase 41 U/L (0-40); Albumin Level 4.6 g/dL (3.5-5.0); Alkaline Phosphatase 111 U/L (39-117); Anion Gap 13 (12-20); Aspartate Amino Transferase 28 U/L (5-37); Bilirubin Total 0.5 mg/dL (0.0-1.0); Blood Urea Nitrogen 22 mg/dL (9-16); Carbon Dioxide 30 mmol/L (22-29); Chloride 105 mmol/L (96-108); Cholesterol 258 mg/dL (<200); Estimated Glomerular Filt Rate > 60; Glucose Random 101 mg/dL (60-115); HDL Cholesterol 52 mg/dL (>40); LDL Cholesterol Calculated 181 mg/dL (<100); Potassium 4.8 mmol/L (3.3-5.1); Sodium 143 mmol/L (135-145); Total Protein 7.8 g/dL (6.5-8.0); Triglycerides 129 mg/dL (<150)
[2024-05-24 15:11] LABS: Free T4 (Free Thyroxine) 0.86 ng/dL (0.71-1.85); Thyroid Stimulating Hormone 1.41 uIU/mL (0.32-4.0)
[2024-05-24 15:44] LABS: Folate 13.8 ng/mL (> or = 4.0); Vitamin B12 662 pg/mL (200-900)
== END 2024-05-24 13:35 | disposition home or self-care (01) ==
LOC: HO.LAB 13:34
PROVIDERS: PCP Internal Medicine; Visit Provider Internal Medicine
DX: E78.00 Pure hypercholesterolemia, unspecified (principal)
CPT/HCPCS: 36415; 80053; 80061; 82607; 82746; 84439; 84443; 85025

== ENCOUNTER 2024-06-07 07:56 | Outpatient (REF) | payer OTHER, SELFPAY ==
--- NOTE | ~2024-06-07 | US_ITS ---
EXAMINATION: US ABDOMEN COMPLETE CLINICAL INFORMATION: Other specified abnormal findings of blood chemistry. COMPARISON: MRI abdomen without and with contrast 06/26/2018. CT abdomen and pelvis with contrast 05/10/2018. Ultrasound abdomen complete 03/23/2017. Renal ultrasound 09/15/2016. X-ray abdomen KUB 08/31/2016. TECHNIQUE: Real-time imaging of the abdominal viscera. FINDINGS: PANCREAS: Obscured by bowel gas and could not be evaluated. ABDOMINAL AORTA: The proximal, mid, and distal segments are normal in caliber. INFERIOR VENA CAVA: Visualized portions are normal. LIVER: The liver is normal in size. The liver contour is normal. There is diffuse increased liver parenchymal echogenicity, consistent with hepatic steatosis. There is a 1.4 x 1.8 x 1.7 cm brightly echogenic mass seen in the right lobe of the liver consistent with a hemangioma as has been shown on the 06/26/2018 MRI abdomen. There is no intrahepatic biliary duct dilatation seen. GALLBLADDER: Normal. The gallbladder is physiologically distended without evidence of stones, sludge, polyps, wall thickening or pericholecystic fluid. COMMON BILE DUCT: Normal in caliber measuring 0.5 cm in diameter. RIGHT KIDNEY: Normal. No hydronephrosis. No renal calculi or focal parenchymal lesions. The kidney measures 11.7 cm in maximum dimension. LEFT KIDNEY: Normal. No hydronephrosis. No renal calculi or focal parenchymal lesions. The kidney measures 11.0 cm in maximum dimension. SPLEEN: Normal. The spleen measures 10.3 cm in maximum dimension. FREE FLUID: None. US/US abdomen complete IMPRESSION: 1. Hepatic steatosis. 2. A 1.8 cm hepatic hemangioma. Electronically signed by: Lul Dos Santos MD 07/19/2024 02:07 PM EDT
[2024-06-07 10:07] LABS: Alanine Aminotransferase 29 U/L (0-40); Albumin Level 4.5 g/dL (3.5-5.0); Alkaline Phosphatase 113 U/L (39-117); Anion Gap 11 (12-20); Aspartate Amino Transferase 24 U/L (5-37); Bilirubin Direct 0.2 mg/dL (0.0-0.5); Bilirubin Total 0.8 mg/dL (0.0-1.0); Blood Urea Nitrogen 19 mg/dL (9-16); Calcium 9.7 mg/dL (8.4-10.2); Carbon Dioxide 30 mmol/L (22-29); Chloride 106 mmol/L (96-108); Cholesterol 250 mg/dL (<200); Estimated Glomerular Filt Rate > 60; Glucose Random 107 mg/dL (60-115); HDL Cholesterol 56 mg/dL (>40); LDL Cholesterol Calculated 166 mg/dL (<100); Potassium 4.2 mmol/L (3.3-5.1); Sodium 143 mmol/L (135-145); Total Protein 7.6 g/dL (6.5-8.0); Triglycerides 144 mg/dL (<150)
[2024-06-07 10:25] LABS: HBc Num1 0.16 S/CO (0.00-0.79); Hepatitis B Core Antibody Nonreactive (Nonreactive); Hepatitis B Surface Antigen Negative (Negative); ~HepC Num1 0.14 S/CO (0.00-0.79); ~Hepatitis B Surface Antibody NONREACTIVE (Nonreactive); ~Hepatitis C Antibody Nonreactive (Nonreactive)
== END 2024-06-07 07:57 | disposition home or self-care (01) ==
LOC: HO.US 07:56
PROVIDERS: PCP Internal Medicine; Visit Provider Internal Medicine
DX: R79.89 Other specified abnormal findings of blood chemistry (principal); E78.00 Pure hypercholesterolemia, unspecified
CPT/HCPCS: 36415; 76700; 80053; 80061; 82248; 86704; 86706; 86803; 87340

== ENCOUNTER 2024-06-24 15:15 | Outpatient (AMB) | payer OTHER, SELFPAY ==
[2024-06-24 15:47] VITALS: BP 132/86; PULSE 60; TEMP 36.8; O2SAT 98; BMI 27.0
--- NOTE | 2024-06-24 15:47 | MHC.OFFWIV ---
Intake Vital Signs 06/24/24 15:47 Height 5 ft 9 in Weight 183 lb BMI 27.0 BP 132/86 Blood Pressure Location Lt brachial Position Sitting Pulse 60 Pulse Source Pulse Oximeter Temp 98.3 F Temp Source Oral Pulse Oximetry (%) 98 Oxygen Delivery Method Room Air Intake Visit Reasons: EP Cold symp,wheezing, cough Intake Note: pt c/o cough, weezing, crackling, chest discomfort x 1 week. Patient Tobacco Use Status: Former Tobacco user Allergies ciprofloxacin [Cipro] Allergy (Unknown, Verified 06/24/24 15:50) joint pain Do you need a note to return to daycare/school/sports/work: No HPI HPI Comments History of Present Illness Details Patient presents to the walk in for 1 week cough, chest congestion, bilateral blocked ears No known sick contacts Denies fever, chest pain, shortness of breath, palpitations, syncope, weakness Endorses some wheezing when he woke up yesterday morning and this morning, that resolved without intervention. Has been taking OTC medications with minimal improvement. [facility] Medical History (Updated 06/24/24 @ 16:24 by Ayanna Her APRN, COMPANION CAREGIVER) Colon cancer screening Diverticulosis Tubular adenoma of colon Blood pressure elevated without history of HTN History of chlamydia Hepatitis B surface antigen positive by SHER Varicocele Renal calculi Migraine GERD (gastroesophageal reflux disease) Gonorrhea Chlamydia Routine screening for STI (sexually transmitted infection) Surgical History (Updated 12/27/23 @ 14:21 by Margret Puentes) Hx of colonoscopy Family History (Updated 03/05/24 @ 13:30 by Janene Zheng MD) Mother Uterine cancer Father Myocardial infarct Sister Substance use disorder Mental health disorder Social History (Updated 03/05/24 @ 13:31 by Janene Zheng MD) Housing: House Alcohol intake: current Alcohol intake frequency: a few times a week Comment: 1 a week 2 drinks Patient Tobacco Use Status: Former Tobacco user Tobacco use type: Cigarette Years Smoked: 2004 e-Cigarette/Vaping Use: Never Used Second Hand Smoke Exposure: No Current occupational status: employed Cognitive needs: No Hearing needs: No Vision needs: No Review of Systems Const All systems reviewed & are unremarkable except as noted in HPI and below Physical Exam Vital Signs: Last Vital Signs Temp 98.3 F 06/24/24 15:47 Pulse 60 06/24/24 15:47 BP 132/86 06/24/24 15:47 Pulse Ox 98 06/24/24 15:47 Oxygen Delivery Method Room Air 06/24/24 15:47 BMI result Body Mass Index 27.0 General: awake, alert, oriented. Answers questions appropriately. Fully engaged in examination. Skin: warm, dry, intact HEENT: TMs intact bilaterally, no redness. Posterior pharynx without erythema or exudate. Sclera without icterus or injection. Cardiac: External chest normal in appearance. Respiratory: +cough. LSCTAB. Abdomen: without gross distension. Neurological: Oriented to person, place, time and situation. Thought process intact. Psychiatric: Appropriate mood and affect. Good judgment and insight. Assessment & Plan Assessment & Plan (1) URI (upper respiratory infection): Code(s): J06.9 - Acute upper respiratory infection, unspecified Plan Prednisone 40 mg p.o. daily x5 days Z-Rafael as directed SARS-CoV2/FLU/RSV swab collected, results pending. Patient aware he will be called with results. Benzonatate 100mg po bid as needed Rest, drink plenty of fluids, tylenol or motrin as needed. Recommend taking OTC nasal decongestants . Follow up with pcp or in clinic for any new or worsening symptoms. Go to ER for shortness of breath, chest pain, palpitations, weakness, dizziness. Orders: Orders SARS-CoV2/FLU/RSV Today J06.9 - Acute upper respiratory infection, unspecified Medications: New azithromycin For 250 mg dose pack: take 500 mg today (day 1), then 250 mg for 4 days (days 2-5) PO 6 tabs 0RF prednisone 40 mg (2 x 20 mg) PO DAILY 5 days 10 tabs 0RF benzonatate 100 mg PO BID PRN 20 caps 0RF cough Coding Level of Care Code Est Pt Level 3 (71081) Diagnoses URI (upper respiratory infection) J06.9
== END 2024-06-24 16:31 | disposition home or self-care (01) ==
PROVIDERS: PCP Internal Medicine; Visit Provider Registered Nurse Emergency
DX: J06.9 Acute upper respiratory infection, unspecified (principal)
CPT/HCPCS: 99213

== ENCOUNTER 2024-06-24 16:21 | Outpatient (REF) | payer OTHER, SELFPAY ==
[2024-06-25 11:26] LABS: Influenza A PCR NEGATIVE (Negative); Influenza B PCR NEGATIVE (Negative); Resp Syncy Virus RNA Qual PCR NEGATIVE (Negative); SARS COV2 PCR INHOUSE NEGATIVE (Negative)
== END 2024-06-24 16:22 | disposition home or self-care (01) ==
LOC: HO.LNP 16:21
PROVIDERS: Visit Provider Registered Nurse Emergency
DX: J06.9 Acute upper respiratory infection, unspecified (principal)
CPT/HCPCS: 0241U

== ENCOUNTER 2025-06-06 15:29 | Outpatient (AMB) | payer OTHER, SELFPAY ==
[2025-06-06 15:43] VITALS: BP 136/90; PULSE 62; RESP 18; TEMP 36.3; O2SAT 97; BMI 27.4
--- NOTE | 2025-06-06 15:43 | A.OFFPC_ITS ---
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 Required: No Accompanied by: Self / Same As Patient Allergies ciprofloxacin (Cipro) Allergy (Unknown, Verified 06/06/25 15:45) joint pain Medication List - Last Reconciled 06/06/25 by Janene Zheng MD metoprolol succinate ER 25 mg PO DAILY multivitamin 1 tab PO DAILY omeprazole 20 mg PO DAILY rizatriptan 10 mg PO .QD PRN sertraline 25 mg PO DAILY Tobacco use date assessed: 03/05/24 Dental Screening Dental Screen Date: 03/05/24 Did you have a dental visit in the last 12 months?: Yes Did you have a dental problem in the last 6 months where you did not have access to dental care?: No Was dental information given to patient?: Patient has dentist [facility] Medical History LFT elevation Colon cancer screening Diverticulosis Tubular adenoma of colon Blood pressure elevated without history of HTN History of chlamydia Hepatitis B surface antigen positive by [facility]ER Varicocele Renal calculi Migraine GERD (gastroesophageal reflux disease) Gonorrhea Chlamydia Routine screening for STI (sexually transmitted infection) Surgical History Hx of colonoscopy Family History Mother Uterine cancer Father Myocardial infarct Sister Substance use disorder Mental health disorder Social History Housing: House Alcohol intake: current Alcohol intake frequency: a few times a week Comment: 1 a week 2 drinks Patient Tobacco Use Status: Former Tobacco user Tobacco use type: Cigarette Years Smoked: 2004 e-Cigarette/Vaping Use: Never Used Second Hand Smoke Exposure: No Current occupational status: employed Cognitive needs: No Hearing needs: No Vision needs: No Questionnaire PHQ-9 Over the last 2 weeks, how often have you been bothered by any of the following problems? 1. Little interest or pleasure in doing things: not at all 2. Feeling down, depressed, or hopeless: not at all 3. Trouble falling or staying asleep, or sleeping too much: nearly every day 4. Feeling tired or having little energy: several days 5. Poor appetite or overeating: not at all 6. Feeling bad about yourself - or that you are a failure or have let yourself or your family down: not at all 7. Trouble concentrating on things, such as reading the newspaper or watching television: not at all 8. Moving or speaking so slowly that other people could have noticed. Or the opposite - being so fidgety or restless that you have been moving around a lot more than usual: not at all 9. Thoughts that you would be better off or of hurting yourself in some way: not at all Total score: 4 66744 - PHQ-9 Billing: Yes Source: Developed by Drs. Mathew Nieves, Caitie Rubio, Francisco Maya and colleagues, with an educational remy from [employer]. Thrive Questionnaire Date Thrive assessed: 06/04/25 I am a: Patient What is your living situation today?: I have a steady place to live Within the past 12 months, did the food you bought not last and you didn't have the money to get more?: Never true Within the past 12 months, did you worry whether your food would run out before you got money to buy more?: Never true Do you have trouble paying for medicines?: No Do you have trouble getting transportation to medical appointments?: No Do you have trouble paying your heating and electricity bill?: No Do you have trouble taking care of your child, family member or friend?: No Do you have trouble with day-to-day activities such as bathing, preparing meals, shopping, managing finances, etc.?: No Are you currently unemployed and looking for a job?: No Are you interested in more education?: No Please select the resources that you would like help with: None Currently or been in a relationship where the following occur: No concerns reported THRIVE Score: 0 AUDIT C Alcohol Use Questionnaire (AUDIT-C) 1. How often do you have a drink containing alcohol?: 2-3 times a week 2. How many drinks containing alcohol do you have on a typical day when you are drinking?: 1 or 2 3. How often do you have six or more drinks on one occasion?: Never Total Score: 3 CARMELITA-7 AMB Questionnaire CARMELITA-7 Date CARMELITA - 7 assessed: 03/05/24 Feeling nervous, anxious, or on edge: 2 = More than half the days Not being able to stop or control worryin = More than half the days Worrying too much about different things: 2 = More than half the days Trouble relaxin = More than half the days Being so restless that it is hard to sit still: 3 = Nearly every day Becoming easily annoyed or irritable: 3 = Nearly every day Feeling afraid as if something awful might happen: 0 = Not at all Total CARMELITA-7 score (0-4 normal; 5-9 mild; 10-14 moderate; 15-21 severe): 14 Source: Developed by Drs. Mathew Nieves, Caitie Rubio, Francisco Maya and colleagues, with an educational remy from [employer]. CARMELITA-7 Assessment Billing CARMELITA-7 Assessment Tool: CARMELITA-7 Assessment 96096 Review of Systems Const Denies poor appetite and Denies weakness Eyes Denies no additional complaints ENT Reports Normal hearing present, Denies dizziness, Denies nasal congestion, Denies tinnitus and Denies sore throat Card Denies chest pain, Denies syncope, Denies rapid heart rate and Denies dyspnea Resp Denies cough and Denies dyspnea GI Denies change in stool character, Reports constipation, Denies diarrhea, Denies nausea and Denies vomiting Denies dysuria and Denies urinary frequency Neuro Reports Normal hearing present, Denies confusion, Denies dizziness, Denies syncope and Denies weakness Psych Denies confusion Physical exam (Primary Care) Vital Signs: Last Vital Signs Temp 97.3 F 06/06/25 15:43 Pulse 62 06/06/25 15:43 Resp 18 06/06/25 15:43 BP 138/90 H 06/06/25 16:06 Pulse Ox 97 06/06/25 15:43 Oxygen Delivery Method Room Air 06/06/25 15:43 BMI result Body Mass Index 27.4 Tobacco/Smoking Status: Tobacco use Status Tobacco use date assessed 03/05/24 06/06/25 15:53 Patient Tobacco Use Status Former Tobacco user 08/22/25 15:53 Tobacco use type Cigarette 06/06/25 15:53 e-Cigarette/Vaping Use Never Used 06/06/25 15:53 PHQ-9: PHQ-9 Score PHQ-9: Total score 4 06/06/25 16:12 Thrive Assessment: Date of Thrive Assessment Date Thrive assessed 06/04/25 06/06/25 15:53 Currently or been in a relationship where the following occur: No concerns rep orted Const General: No confusion Orientation/consciousness: No confusion HENMT Head: Yes normocephalic Ears: external ears normal and TM's normal bilaterally Face and sinus: Yes normal facial exam Mouth: moist mucous membranes Throat: Yes tonsils normal Eyes Conjunctivae: conjunctivae normal Pupils: Equal, round and reactive pupils present and Pupil accommodation reflex normal Direct Ophthalmoscopy: normal light reflex Neck Neck: No lymphadenopathy Thyroid: Thyroid normal Chest Chest palpation & inspection: normal inspection of the chest Resp Effort & Inspection: normal respiratory effort and no audible wheezes Auscultation: clear to auscultation bilaterally, no crackles, no wheezes and lung sounds not diminished Cardio Rate: regular rate Rhythm: regular rhythm Peripheral pulses: radial pulses present and dorsalis pedis present GI Palpation (GI): no masses Auscultation: normal bowel sounds and normoactive bowel sounds Rectal Exam - Male: Yes deferred Skin General skin exam: no rashes or lesions noted Rashes: no rashes Neuro General: No confusion Cranial nerves: Yes Equal, round and reactive pupils present and Yes Normal hearing present Cognition (Neuro): normal cognition Gait exam (Neuro): Normal gait present Motor exam (neuro): 5/5 motor strength present throughout Deep tendon reflexes (DTR's): Right brachioradialis reflex intensity grade: 2+, Left brachioradialis reflex intensity grade: 2+, Right patellar reflex intensity grade: 2+ and Left patellar reflex intensity grade: 2+ Extrem General: No edema Coding Level of Care Code Est Pt Prev Care 40-64y(68535) Diagnoses Annual physical exam Z00.00 Hepatic steatosis K76.0 Gastroesophageal reflux disease, unspecified whether esophagitis present K21.9 Esophagitis presence: esophagitis presence not specified Hypercholesterolemia E78.00 HTN (hypertension) I10 Generalized anxiety disorder F41.1 Hypersomnia G47.10 Hemorrhoid K64.9 Additional Codes CARMELITA-7 Assessment Billing - CARMELITA-7 Assessment Tool: CARMELITA-7 Assessment 41572 ([id number]) PHQ-9 - 11540 - PHQ-9 Billing: Yes ([id number]) Assessment & Plan Assessment & Plan (1) Annual physical exam: Code(s): Z00.00 - Encounter for general adult medical examination without abnormal findings Category: Medical Plan: Patient is advised to eat healthy, keep well hydrated, keep active and have adequate sleep. (2) Hepatic steatosis: Comment: July 2024 Code(s): K76.0 - Fatty (change of) liver, not elsewhere classified Category: Medical Plan: Low-fat diet and exercise (3) GERD (gastroesophageal reflux disease): Code(s): K21.9 - Gastro-esophageal reflux disease without esophagitis Category: Medical Qualifiers: Esophagitis presence: esophagitis presence not specified Qualified Code(s): K21.9 - Gastro-esophageal reflux disease without esophagitis Plan: Avoid the foods that causes that usually spicy foods, tomato products, juices, coffee, soda and foods that your sensitive to. After eating do not lie down, allow 3-4 hours before in lie down. And keep the head of bed above 30 degrees to avoid the acid from going up. (4) Hypercholesterolemia: Code(s): E78.00 - Pure hypercholesterolemia, unspecified Category: Medical Plan: Avoid fried foods, chicken skin, eggs, butter margarine, pastries and meat. Be it pork or beef they have a lot of cholesterol LDL goal of less than 130 and triglyceride of less than 150 patient will need blood work (5) HTN (hypertension): Code(s): I10 - Essential (primary) hypertension Category: Medical Plan: Continue with blood pressure medication. Decrease salt intake and exercise on metoprolol 25 mg once a day (6) Generalized anxiety disorder: Comment: Declined counseling Code(s): F41.1 - Generalized anxiety disorder Category: Medical Plan: Continue with present medication (7) Hypersomnia: Code(s): G47.10 - Hypersomnia, unspecified Category: Medical (8) Hemorrhoid: Code(s): K64.9 - Unspecified hemorrhoids Category: Medical Plan History of Present Illness The patient is a 49-year-old male presenting for a follow-up visit and physical examination. The patient has a history of Gastroesophageal Reflux Disease (GERD), which has been managed with omeprazole, leading to a reduction in heartburn symptoms. He also experiences migraines, for which he uses rizatriptan as needed. Hypertension is another ongoing condition, with the patient currently on metoprolol 25 mg daily. Blood pressure readings at home have been slightly elevated, with systolic values around 138 mmHg and diastolic around 90 mmHg. The patient has generalized anxiety disorder, managed with sertraline 25 mg daily. He reports weight gain, which he attributes to medication and lifestyle factors, despite efforts to maintain physical activity. Hypercholesterolemia is present, with previous blood work indicating elevated cholesterol levels. The patient has been advised to follow a low-fat diet and engage in regular exercise to manage cholesterol levels. The patient was diagnosed with hepatic steatosis following an ultrasound in July 2024, prompted by elevated liver function tests. He has been advised to monitor his diet and alcohol intake to manage this condition. A history of tubular adenoma of the colon was noted, with the last colonoscopy performed in December 2023. The patient is advised to have a follow-up colonoscopy within three years due to the benign nature of the findings. The patient reports hemorrhoids, which cause discomfort during bowel movements. He has been advised to use a topical cream and sitz baths to alleviate symptoms. Health Maintenance - Diet: Advised to follow a low-fat diet to manage cholesterol and hepatic steatosis - Exercise: Encouraged to engage in regular physical activity to manage weight and cardiovascular health - Alcohol: Recommended to limit alcohol intake, especially considering hepatic steatosis - Colonoscopy: Follow-up recommended within three years due to history of tubular adenoma - Blood Pressure Monitoring: Advised to regularly monitor blood pressure at home - Sleep Apnea: Consideration for repeat sleep apnea testing due to symptoms of poor sleep quality Social History - Alcohol Use: Consumes alcohol primarily on weekends, typically two drinks per occasion - Exercise: Engages in walking, particularly on weekends, covering 15-20 miles over three days - Diet: Attempts to maintain a balanced diet, with reduced meat and no soda or coffee consumption - Family History: Father recently had a heart attack, increasing concern about p ersonal cardiovascular risk Review of Systems - Cardiovascular: Reports occasional dizziness, denies chest pain - Respiratory: Reports waking up short of breath, denies cough - Gastrointestinal: Reports soft stools and occasional diarrhea, denies nausea or vomiting - Neurological: Reports constant fatigue, denies headaches - Musculoskeletal: Denies joint pain or swelling - Dermatological: Denies skin rashes or lesions Physical Exam General: Cooperative, healthy appearing, comfortable, no acute distress and well developed Orientation: Patient oriented x3 Limitations: No limitations Head: Normal to inspection Ears: Hearing grossly normal bilaterally, occasional ringing noted Nose: Normal external nose present, slightly stuffed up Face and sinus: Normal facial exam Eyes: Appearance normal, both eyes and all related structures Neck: Normal visual inspection and Yes full ROM Respiratory: Normal respiratory effort and able to speak in complete sentences. Clear to auscultation bilaterally Cardiovascular: Regular rate and rhythm. Normal S1 and S2 GI: Normal to inspection. Soft to palpation and nontender. Reports frequent soft bowel movements, sometimes liquidy, and occasional hemorrhoids Skin: No rashes or lesions noted Neuro: Patient oriented x3 Extremities: Normal to inspection Results - Labs: Blood work in May 2024 showed normal blood count, elevated blood sugar at 107 mg/dL, elevated liver enzymes, and high cholesterol - Imaging: Liver ultrasound in July 2024 revealed hepatic steatosis Plan The patient will continue with current medications, including omeprazole for GERD, rizatriptan for migraines, metoprolol for hypertension, and sertraline for anxiety. Blood pressure monitoring at home is advised, with a follow-up in three months to reassess management if readings remain elevated. For hypercholesterolemia, the patient is encouraged to adhere to a low-fat diet and regular exercise, with a target LDL cholesterol of less than 130 mg/dL and triglycerides less than 150 mg/dL. Repeat blood work is planned to evaluate cholesterol levels and liver function. The patient is advised to limit alcohol intake to manage hepatic steatosis and to consider a repeat sleep apnea test due to symptoms of poor sleep quality. A topical cream and sitz baths are recommended for hemorrhoid management. Preventative measures include a follow-up colonoscopy within three years and regular exercise to manage weight and cardiovascular health. Patient was informed and verbally consented to the use of an ambient scribe for clinic note documentation during this visit. Discussion Notes During the visit, I discussed with the patient the importance of managing his hypertension through regular monitoring and potential medication adjustments if necessary. We reviewed the need for lifestyle modifications, including a low-fat diet and regular exercise, to address hypercholesterolemia and hepatic steatosis. I advised limiting alcohol intake and considering a repeat sleep apnea test due to reported symptoms. We also discussed the management of hemorrhoids with topical treatments and sitz baths. Follow-up plans include repeat blood work and a colonoscopy within three years. Patient Instructions - Continue current medications: omeprazole, rizatriptan, metoprolol, and sertraline. - Monitor blood pressure at home regularly and report any significant changes. - Follow a low-fat diet and engage in regular exercise to manage cholesterol and weight. - Limit alcohol intake, especially considering liver health. - Consider a repeat sleep apnea test due to symptoms of poor sleep quality. - Use topical cream and sitz baths for hemorrhoid relief. - Schedule follow-up blood work and a colonoscopy within three years. Orders: Orders Comprehensive Met. Panel Today K76.0 - Fatty (change of) liver, not elsewhere classified Thyroid Stimulating Hormone Today K76.0 - Fatty (change of) liver, not elsewhere classified Hemoglobin A1c Today K76.0 - Fatty (change of) liver, not elsewhere classified RT home sleep study Today G47.10 - Hypersomnia, unspecified Complete Blood Count Auto Diff Today K76.0 - Fatty (change of) liver, not elsewhere classified Free T4 (Free Thyroxine) Today K76.0 - Fatty (change of) liver, not elsewhere classified Vitamin B12 and Folate Today K76.0 - Fatty (change of) liver, not elsewhere classified Lipid Panel Today E78.00 - Pure hypercholesterolemia, unspecified, K76.0 - Fatty (change of) liver, not elsewhere classified Medications: New hydrocortisone 2.5% (Proctosol HC) 1 appl NE BID-QID PRN 30 grams 1RF hemorrhoids K64.9 - Unspecified hemorrhoids
[2025-06-06 16:06] VITALS: BP 138/90
== END 2025-06-06 16:34 | disposition home or self-care (01) ==
LOC: HO.HMCH 15:30
PROVIDERS: PCP Internal Medicine; Visit Provider Internal Medicine
DX: Z00.00 Encounter for general adult medical examination without abnormal findings (principal); K76.0 Fatty (change of) liver, not elsewhere classified; K21.9 Gastro-esophageal reflux disease without esophagitis; E78.00 Pure hypercholesterolemia, unspecified; I10 Essential (primary) hypertension; F41.1 Generalized anxiety disorder; G47.10 Hypersomnia, unspecified; K64.9 Unspecified hemorrhoids

== ENCOUNTER → 2025-06-06 15:29 | Outpatient (BNVA) | payer OTHER, SELFPAY | PROVIDERS: PCP Internal Medicine; Visit Provider Internal Medicine | DX: Z00.00 Encounter for general adult medical examination without abnormal findings (principal); K21.9 Gastro-esophageal reflux disease without esophagitis; K76.0 Fatty (change of) liver, not elsewhere classified; E78.00 Pure hypercholesterolemia, unspecified; I10 Essential (primary) hypertension; F41.1 Generalized anxiety disorder; G47.10 Hypersomnia, unspecified; K64.9 Unspecified hemorrhoids | CPT/HCPCS: 96127 ==

== ENCOUNTER 2025-06-20 13:04 | Outpatient (REF) | payer OTHER, SELFPAY ==
[2025-06-20 13:22] LABS: MANUAL DIFF FLAG NO
[2025-06-20 13:34] LABS: Hematocrit 45.4 % (42.0-52.0); Hemoglobin 14.9 g/dl (14.0-18.0); Imm Gran Abs Auto 0.01 X10*3/uL (0.00-0.03); Imm Gran Pct Auto 0.2 % (0.0-0.4); Lymphocytes Absolute Auto 1.3 X10*3/uL (1.2-4.9); Mean Corpuscular HGB Conc 32.8 g/dl (31.0-36.0); Mean Corpuscular Hemoglobin 29.6 pg (27.0-33.0); Mean Corpuscular Volume 90.1 fL (80.0-98.0); NRBC Abs Auto 0.000 X10*3/uL (0.0-0.012); NRBC Pct Auto 0.0 /100WBC (0.0-0.2); Platelet Count 177 X10*3/uL (160-400); Red Blood Count 5.04 X10*6/uL (4.60-5.80); White Blood Count 4.7 X10*3/uL (4.8-10.8)
[2025-06-20 13:46] LABS: Hemoglobin A1C 156.6287 umol/L; Total Hemoglobin (HGBA1C) 3922.2746 umol/L
[2025-06-20 14:02] LABS: Alanine Aminotransferase 45 U/L (0-40); Albumin Level 4.7 g/dL (3.5-5.0); Alkaline Phosphatase 107 U/L (39-117); Anion Gap 10 (12-20); Aspartate Amino Transferase 39 U/L (5-37); Blood Urea Nitrogen 19 mg/dL (9-16); Calcium 9.5 mg/dL (8.4-10.2); Carbon Dioxide 32 mmol/L (22-29); Chloride 107 mmol/L (96-108); Cholesterol 260 mg/dL (<200); Estimated Glomerular Filt Rate > 60; HDL Cholesterol 51 mg/dL (>40); Potassium 4.6 mmol/L (3.3-5.1); Sodium 144 mmol/L (135-145); Total Protein 7.5 g/dL (6.5-8.0); Triglycerides 161 mg/dL (<150)
[2025-06-20 14:17] LABS: Free T4 (Free Thyroxine) 0.85 ng/dL (0.71-1.85); Thyroid Stimulating Hormone 1.33 uIU/mL (0.32-4.0)
[2025-06-20 14:31] LABS: Folate 11.9 ng/mL (> or = 4.0); Vitamin B12 765 pg/mL (200-900)
== END 2025-06-20 13:05 | disposition home or self-care (01) ==
LOC: HO.LAB 13:04
PROVIDERS: PCP Internal Medicine; Visit Provider Internal Medicine
DX: K76.0 Fatty (change of) liver, not elsewhere classified (principal); E78.00 Pure hypercholesterolemia, unspecified; Z13.1 Encounter for screening for diabetes mellitus
CPT/HCPCS: 36415; 80053; 80061; 82607; 82746; 83036; 84439; 84443; 85025

== ENCOUNTER 2025-08-15 12:55 | Outpatient (AMB) | payer OTHER, SELFPAY ==
--- NOTE | 2025-08-15 13:00 | A.OFFPC_ITS ---
Vital Signs 08/15/25 13:01 Height 5 ft 9 in Weight 187 lb 6 oz BMI 27.7 BP 130/82 Blood Pressure Location Lt brachial Position Sitting Pulse 77 Pulse Source Pulse Oximeter Temp 97.3 F Temp Source Temporal Artery Scan Pulse Oximetry (%) 94 Oxygen Delivery Method Room Air Intake Visit Reasons: [facility] [place] [facility] 08/04 chest pain/SOB Intake Note: Patient is here to follow-up after a visit the emergency department at [facility] [place] [facility] on 08/03/25 Communications Manager Required: No Experience Designer: Not Required per policy Accompanied by: Self / Same As Patient Allergies ciprofloxacin (Cipro) Allergy (Unknown, Verified 08/15/25 13:01) joint pain Tobacco use date assessed: 08/15/25 Dental Screening Dental Screen Date: 08/15/25 Did you have a dental visit in the last 12 months?: Yes Did you have a dental problem in the last 6 months where you did not have access to dental care?: No Was dental information given to patient?: Patient has dentist HPI HPI Comments History of Present Illness Details 49 y/o Male presents to the clinic today for Hospital Discharge Follow- up (HDF). PMH: SVT, Generalized Anxiety Disorder, Hypertension, Hyperlipidemia, GERD, and Migraine Headaches. Patient was admitted at [facility] [place] from 08/03?08/04 for evaluation and treatment of chest pain, palpitations, and anxiety attack. Workup including labs, imaging, and ECG was unremarkable. Today, patient reports feeling well with no recurrent chest pain and improved anxiety. However, he notes elevated home BP readings over the past week. Currently taking Metoprolol ER 25 mg daily, and feels the dose is sufficient, though during hospitalization an increase or medication change was recommended. Patient also inquires about increasing his anxiety medication and expresses willingness to start therapy. He reports a history of taking Alprazolam in the past for anxiety relief. Denies suicidal or homicidal ideation. 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 States he has been trying to reach the office regarding this issue without success. [facility] Medical History LFT elevation Colon cancer screening Diverticulosis Tubular adenoma of colon Blood pressure elevated without history of HTN History of chlamydia Hepatitis B surface antigen positive by [facility] Varicocele Renal calculi Migraine GERD (gastroesophageal reflux disease) Gonorrhea Chlamydia Routine screening for STI (sexually transmitted infection) Surgical History Hx of colonoscopy Family History Mother Uterine cancer Father Myocardial infarct Sister Substance use disorder Mental health disorder Social History Housing: House Alcohol intake: current Alcohol intake frequency: a few times a week Comment: 1 a week 2 drinks Patient Tobacco Use Status: Former Tobacco user Tobacco use type: Cigarette Years Smoked: 2004 e-Cigarette/Vaping Use: Never Used Second Hand Smoke Exposure: Yes service: No Current occupational status: employed Cognitive needs: No Hearing needs: No Vision needs: No Questionnaire Thrive Questionnaire Date Thrive assessed: 06/04/25 I am a: Patient What is your living situation today?: I have a steady place to live Within the past 12 months, did the food you bought not last and you didn't have the money to get more?: Never true Within the past 12 months, did you worry whether your food would run out before you got money to buy more?: Never true Do you have trouble paying for medicines?: No Do you have trouble getting transportation to medical appointments?: No Do you have trouble paying your heating and electricity bill?: No Do you have trouble taking care of your child, family member or friend?: No Do you have trouble with day-to-day activities such as bathing, preparing meals, shopping, managing finances, etc.?: No Are you currently unemployed and looking for a job?: No Are you interested in more education?: No Please select the resources that you would like help with: None Currently or been in a relationship where the following occur: No concerns reported THRIVE Score: 0 CARMELITA-7 AMB Questionnaire CARMELITA-7 Date CARMELITA - 7 assessed: 08/15/25 Feeling nervous, anxious, or on edge: 0 = Not at all Not being able to stop or control worryin = Not at all Worrying too much about different things: 0 = Not at all Trouble relaxin = Not at all Being so restless that it is hard to sit still: 0 = Not at all Becoming easily annoyed or irritable: 0 = Not at all Feeling afraid as if something awful might happen: 0 = Not at all Total CARMELITA-7 score (0-4 normal; 5-9 mild; 10-14 moderate; 15-21 severe): 0 Source: Developed by Drs. Mathew Nieves, Caitie Rubio, Francisco Maya and colleagues, with an educational remy from [employer]. Review of Systems Const All systems reviewed & are unremarkable except as noted in HPI and below Physical exam (Primary Care) Vital Signs: Last Vital Signs Temp 97.3 F 08/15/25 13:01 Pulse 77 08/15/25 13:01 BP 130/82 08/15/25 13:01 Pulse Ox 94 08/15/25 13:01 Oxygen Delivery Method Room Air 08/15/25 13:01 BMI result Body Mass Index 27.7 Tobacco/Smoking Status: Tobacco use Status Tobacco use date assessed 08/15/25 08/15/25 13:06 Patient Tobacco Use Status Former Tobacco user 08/15/25 13:06 Tobacco use type Cigarette 08/15/25 13:06 e-Cigarette/Vaping Use Never Used 08/15/25 13:06 Thrive Assessment: Date of Thrive Assessment Date Thrive assessed 06/04/25 08/15/25 13:06 Currently or been in a relationship where the following occur: No concerns reported Const General: no acute distress and well groomed Nutritional Appearance: well nourished Orientation/consciousness: patient oriented x3 Resp Effort & Inspection: normal respiratory effort Cardio Heart sounds: S1 normal heart sound present and S2 normal heart sound present Neuro General: patient oriented x3, gait normal and moves all extremities Psych Speech and movement: Normal speech and movement present Affect: normal affect Attitude: cooperative Thought content: suicidality and no homicidality Insight: Good insight present (Psych) Judgement: Good judgement present (Psych) Coding Level of Care Code Est Pt Level 4 (35212) Diagnoses Generalized anxiety disorder F41.1 HTN (hypertension) I10 Hypercholesterolemia E78.00 Time Spent (min) 20 Assessment & Plan Assessment & Plan (1) Generalized anxiety disorder: Code(s): F41.1 - Generalized anxiety disorder Category: Medical Plan: Patient reports persistent anxiety and requests dose adjustment. Will increase Sertraline to 50 mg daily. Will add Hydroxyzine 25 mg TID or PRN. Discussed options including therapy referral - Placed one today. Encouraged to engage in behavioral therapy/counseling for long-term management. Avoid benzodiazepines due to dependency potential. Denies suicidal or homicidal ideation. (2) HTN (hypertension): Code(s): I10 - Essential (primary) hypertension Category: Medical Plan: Reports elevated BP readings at home. Increased Metoprolol to 50 mg ER daily. Will monitor home BP readings closely; if persistently elevated, consider adding a second antihypertensive (e.g., CARLOS inhibitor or ARB). Reinforced low-sodium diet, stress reduction, and regular physical activity. Follow-up with PCP as scheduled. (3) Hypercholesterolemia: Code(s): E78.00 - Pure hypercholesterolemia, unspecified Category: Medical Plan: Reports new cholesterol medication not started due to insurance prior authorization delay. Will Discontinue previous order and Order Atorvastatin 20 mg. Encourage heart-healthy diet, weight management, and regular exercise. Plan Call the office if anxiety worsens or experiences any new chest pain or palpitations. Medications: New metoprolol succinate ER 50 mg PO DAILY 90 tabs 0RF I10 - Essential (primary) hypertension sertraline 50 mg PO DAILY 30 tabs 2RF F41.1 - Generalized anxiety disorder atorvastatin (Lipitor) 20 mg PO BEDTIME 30 tabs 2RF E78.00 - Pure hypercholesterolemia, unspecified hydroxyzine HCl 25 mg PO TID PRN 90 tabs 1RF anxiety F41.1 - Generalized anxiety disorder Discontinued sertraline Discontinued Reason: Doctor's Order 25 mg PO DAILY 90 tabs 1RF F41.1 - Generalized anxiety disorder rosuvastatin Discontinued Reason: Insurance Denied 5 mg PO DAILY 30 tabs 3RF E78.00 - Pure hypercholesterolemia, unspecified metoprolol succinate ER Discontinued Reason: Doctor's Order 25 mg PO DAILY 90 tabs 2RF I10 - Essential (primary) hypertension
[2025-08-15 13:01] VITALS: BP 130/82; PULSE 77; TEMP 36.3; O2SAT 94; BMI 27.7
== END 2025-08-15 13:33 | disposition home or self-care (01) ==
LOC: HO.HMCH 12:55
PROVIDERS: PCP Internal Medicine; Visit Provider Nurse Practitioner Family
DX: F41.1 Generalized anxiety disorder (principal); I10 Essential (primary) hypertension; E78.00 Pure hypercholesterolemia, unspecified

== ENCOUNTER 2025-10-03 15:28 | Outpatient (AMB) | payer OTHER, SELFPAY ==
--- NOTE | 2025-10-03 15:30 | MHC.PC.OV ---
Vital Signs 10/03/25 15:33 Height 5 ft 9 in Weight 188 lb BMI 27.8 BP 132/86 Respiration 14 Pulse 64 Pulse Source Pulse Oximeter Temp 97.1 F Temp Source Temporal Artery Scan Pulse Oximetry (%) 96 Oxygen Delivery Method Room Air Intake Visit Reasons: Hypertension Fitting Room Attendant Required: No Accompanied by: Self / Same As Patient Allergies ciprofloxacin (Cipro) Allergy (Unknown, Verified 10/03/25 15:31) joint pain Medication List - Last Reconciled 10/03/25 by Janene Zheng MD atorvastatin (Lipitor) 20 mg PO BEDTIME hydrocortisone 2.5% (Proctosol HC) 1 appl MO BID-QID PRN hydroxyzine HCl 25 mg PO TID metoprolol succinate ER 50 mg PO DAILY multivitamin 1 tab PO DAILY omeprazole 20 mg PO DAILY rizatriptan 10 mg PO .QD PRN sertraline 50 mg PO DAILY Tobacco use date assessed: 08/15/25 Dental Screening Dental Screen Date: 08/15/25 HPI HPI Comments History of Present Illness Details History of Present Illness The patient is a 50-year-old male presenting for a follow-up visit for multiple chronic conditions. His medical history includes GERD, migraine, hypertension, generalized anxiety disorder, hypercholesterolemia, history of tubular adenoma of the colon with the last colonoscopy in December 2023, and hepatic steatosis. He was last seen in May and was seen by a nurse practitioner in July following a hospitalization for chest pain on August 03. For anxiety, his sertraline was recently increased and hydroxyzine PRN was added. He reports feeling better but not 100%, noting that hydroxyzine causes tiredness but does not alleviate his anxiety-related chest pressure. He admits to taking a friend's alprazolam, about one to two pills a week, which he found effective. He has a history of taking alprazolam daily years ago and recalls that discontinuing it was difficult. For hypertension, his metoprolol was increased to 50 mg once a day, and his blood pressure is well-controlled on this medication alone. For hypercholesterolemia, his medication was changed to atorvastatin, which is covered by his insurance. Both of his parents are on cholesterol medication. June lab work showed an LDL of 177 mg/dL and triglycerides of 161 mg/dL, with an HDL of 51 mg/dL. An ultrasound last year confirmed hepatic steatosis. Recent lab work from June also revealed an elevated HgbA1c of 5.8%, consistent with prediabetes, and mild leukopenia. His renal function is normal, but his creatinine has increased from 0.88 to 1.01, and he admits to taking ibuprofen for headaches. Over the past few weeks, following a bad head cold after travel, he has experienced intermittent bilateral ear blockage and pressure, which has been constant for the past few days. He denies any fever. He reports that his sleep is variable and acknowledges that poor sleep worsens his anxiety. He is trying to return to a regular exercise routine, recognizing that a lack of exercise has contributed to his health issues. Health Maintenance The patient received an influenza vaccine during the visit. Follow-up labs have been ordered for October, requiring an 8-hour fast. He was counseled to avoid NSAID use (ibuprofen, Aleve, etc.) and to use Tylenol instead to protect his kidney function. Social History - Employment: The patient works in [employer]. - Substance Use: He reports taking a friend's alprazolam (1-2 pills/week) for anxiety. - Exercise: He is trying to become more regular at the gym after a period of inactivity. - Diet: He reports he is eating better. - Sleep: He reports his sleep quality is variable ( Results - Labs from June: - CBC: Mild leukopenia; not anemic. - CMP: Sodium and potassium are normal. - Kidney function is normal with a creatinine of 1.01, but this is an increase from a prior value of 0.88. - Fasting blood sugar is elevated at 107. - Hemoglobin A1c: 5.8%. - Lipid Panel: Good cholesterol (HDL) is 51, bad cholesterol (LDL) is 177, and triglycerides are 161. - Prior Imaging and Procedures: - Ultrasound (last year): Showed hepatic steatosis. - Colonoscopy (December 2023): History of tubular adenoma. [facility], [facility] Medical History LFT elevation Colon cancer screening Diverticulosis Tubular adenoma of colon Blood pressure elevated without history of HTN History of chlamydia Hepatitis B surface antigen positive by [facility] Varicocele Renal calculi Migraine GERD (gastroesophageal reflux disease) Gonorrhea Chlamydia Routine screening for STI (sexually transmitted infection) Surgical History Hx of colonoscopy Family History Mother Uterine cancer Father Myocardial infarct Sister Substance use disorder Mental health disorder Social History Housing: House Alcohol intake: current Alcohol intake frequency: a few times a week Comment: 1 a week 2 drinks Patient Tobacco Use Status: Former Tobacco user Tobacco use type: Cigarette Years Smoked: 2004 e-Cigarette/Vaping Use: Never Used Second Hand Smoke Exposure: Yes service: No Current occupational status: employed Cognitive needs: No Hearing needs: No Vision needs: No Questionnaire Thrive Questionnaire Date Thrive assessed: 06/04/25 I am a: Patient What is your living situation today?: I have a steady place to live Within the past 12 months, did the food you bought not last and you didn't have the money to get more?: Never true Within the past 12 months, did you worry whether your food would run out before you got money to buy more?: Never true Do you have trouble paying for medicines?: No Do you have trouble getting transportation to medical appointments?: No Do you have trouble paying your heating and electricity bill?: No Do you have trouble taking care of your child, family member or friend?: No Do you have trouble with day-to-day activities such as bathing, preparing meals, shopping, managing finances, etc.?: No Are you currently unemployed and looking for a job?: No Are you interested in more education?: No Please select the resources that you would like help with: None Currently or been in a relationship where the following occur: No concerns reported THRIVE Score: 0 CARMELITA-7 AMB Questionnaire CARMELITA-7 Date CARMELITA - 7 assessed: 08/15/25 Source: Developed by Drs. Mathew Nieves, Caitie Rubio, Francisco Maya and colleagues, with an educational remy from [employer]. Review of Systems Narrative Review of Systems - General: Denies fever. - HEENT: Reports intermittent hearing blockage and pressure in both ears, feeling as if he is in a tunnel. - Cardiovascular: Reports intermittent chest pressure. - Gastrointestinal: Denies abdominal pain. - Neurological: Reports a history of migraines. - Psychiatric: Reports ongoing anxiety, though it has improved. - Sleep: Reports variable sleep quality, which impacts his anxiety levels. Physical exam (Primary Care) Vital Signs: Last Vital Signs Temp 97.1 F 10/03/25 15:33 Pulse 64 10/03/25 15:33 Resp 14 10/03/25 15:33 BP 132/86 10/03/25 15:33 Pulse Ox 96 10/03/25 15:33 Oxygen Delivery Method Room Air 10/03/25 15:33 BMI result Body Mass Index 27.8 Tobacco/Smoking Status: Tobacco use Status Tobacco use date assessed 08/15/25 10/03/25 15:36 Patient Tobacco Use Status Former Tobacco user 10/03/25 15:36 Tobacco use type Cigarette 10/03/25 15:36 e-Cigarette/Vaping Use Never Used 10/03/25 15:36 Thrive Assessment: Date of Thrive Assessment Date Thrive assessed 06/04/25 10/03/25 15:36 Currently or been in a relationship where the following occur: No concerns reported Narrative Physical Exam - Vitals: Blood pressure noted to be good. - Head: Sinuses are non-tender to palpation. - Ears: No pain with manipulation of the auricle bilaterally. - External ear canals are clear and not blocked. - Mouth: Oropharynx examined. - Lungs: Clear to auscultation bilaterally. Const General: alert; No acute distress Eyes Conjunctivae: conjunctivae normal Resp Auscultation: clear to auscultation bilaterally Cardio Rate: regular rate Rhythm: regular rhythm GI Inspection: Yes normal to inspection Extrem General: Yes normal to inspection and No edema Office Procedures Flu Questionnaire Does the patient have a severe egg allergy?: No Does the patient have severe life threatening allergies?: No Does the patient have a fever or illness today?: No Has the patient ever had Guillain-Bowie Syndrome?: No Has the patient ever had any past reaction to a flu shot?: No Immunizations Fluarix [id number] (PF) 45 mcg (15 mcg x 3)/0.5 mL IM syringe Performing Provider: Janene Zheng MD [facility] Administered by: CHELSEA Lowe on 10/03/25 16:12 Dose Route Admin Location Dispensed Lot Number Expiration Date [facility] [place] [facility] [employer] 0.5 mL IM Left Deltoid 0.5 mL [id number] 04/14/26 67429-589-38 [facility] [employer] VIS Given Date VIS Provided VIS Publication Date 10/03/25 Single Vaccine 24 Eligibility Eligibility Date Funding Source Not [facility] Eligible 10/03/25 Private Coding Level of Care Code Est Pt Level 4 (55787) Add On Problem Visit Only Diagnoses HTN (hypertension) I10 Hypercholesterolemia E78.00 Hepatic steatosis K76.0 Generalized anxiety disorder F41.1 Impaired fasting blood sugar R73.01 Chest pain R07.9 Nasal congestion R09.81 Assessment & Plan Assessment & Plan (1) HTN (hypertension): Code(s): I10 - Essential (primary) hypertension Category: Medical Plan: Continue with blood pressure medication. Decrease salt intake and exercise on metoprolol 50 mg once a day (2) Hypercholesterolemia: Code(s): E78.00 - Pure hypercholesterolemia, unspecified Category: Medical Plan: Avoid fried foods, chicken skin, eggs, butter margarine, pastries and meat. Be it pork or beef they have a lot of cholesterol has been started on atorvastatin LDL goal of less than 130 and triglyceride of less than 150 (3) Hepatic steatosis: Comment: July 2024 Code(s): K76.0 - Fatty (change of) liver, not elsewhere classified Category: Medical Plan: Low-fat diet and exercise (4) Generalized anxiety disorder: Code(s): F41.1 - Generalized anxiety disorder Category: Medical Plan: Sertraline has been increased and was given hydroxyzine (5) Impaired fasting blood sugar: Code(s): R73.01 - Impaired fasting glucose Category: Medical Plan: Decrease the amount of carbohydrate intake, pasta, bread, rice and potatoes are all sugar and that is aside from all the sweet stuff, remember that fruits are good but they are Sweet also. (6) Chest pain: Code(s): R07.9 - Chest pain, unspecified Category: Medical (7) Nasal congestion: Code(s): R09.81 - Nasal congestion Category: Medical Plan Plan Patient was informed and verbally consented to the use of an ambient scribe for clinic note documentation during this visit. 1. Generalized Anxiety Disorder The patient reports that the recently added hydroxyzine PRN is not effective for his anxiety and primarily causes somnolence. He admits to finding relief from occasional use of a friend's alprazolam. After discussing the risks of dependency, which the patient understands from prior experience, a small prescription for 10 alprazolam tablets will be sent for PRN use. Continue sertraline and encourage non-pharmacologic management including stress reduction and exercise. 2. Hypercholesterolemia The patient's recent labs show an LDL of 177 mg/dL and triglycerides of 161 mg/dL, both above goal (<130 and <150, respectively). He was recently started on atorvastatin. Continue atorvastatin and recheck a lipid panel with his follow-up labs in October. Advised on a low-fat diet and exercise. 3. Essential Hypertension The patient's blood pressure is noted to be well-controlled on his current medication. Continue metoprolol 50 mg once daily. 4. Prediabetes The patient's hemoglobin A1c is 5.8%, placing him in the prediabetic range. No medications will be started at this time. Counseled on dietary modifications, specifically being careful with carbohydrates such as pasta, bread, rice, and potatoes. Plan to recheck labs in October. 5. Eustachian Tube Dysfunction The patient presents with symptoms of ear blockage and pressure following a URI. A nasal spray will be prescribed once daily, with instructions on proper administration. A prescription for an antibiotic will also be sent to the pharmacy, with instructions to fill and start it only if symptoms do not improve on the third day of using the nasal spray. 6. Atypical Chest Pain The patient continues to experience intermittent chest pressure, which may be related to his anxiety. To rule out a cardiac etiology, a referral for a stress test has been ordered. The patient will be contacted by the scheduling department for the test. Discussion Notes I discussed the patient's recent lab results from June with him. I explained that his hemoglobin A1c of 5.8% indicates prediabetes, and we discussed the importance of being careful with carbohydrate intake, including pasta, bread, rice, and sweets. I also reviewed his lipid panel, noting his LDL is 177 and triglycerides are 161, and we need to get his LDL below 130. I pointed out the slight increase in his creatinine and advised him to avoid ibuprofen and similar NSAIDs, recommending Tylenol as a safer alternative for pain relief to protect his kidneys. Regarding his anxiety, we discussed that hydroxyzine was not effective. After a thorough discussion about the risks of dependence, of which he is aware from past experience, I agreed to prescribe a small quantity of alprazolam for as-needed use, so he has something available if needed. Due to his persistent intermittent chest pressure, I ordered a stress test to rule out a cardiac cause. For his new symptoms of ear blockage, I prescribed a nasal spray and a contingent antibiotic, with instructions to only start the antibiotic if the nasal spray does not provide relief after a few days. We discussed that once his lifestyle factors, such as exercise, are re-established and his lab numbers improve, we may be able to reduce his medications. Follow-up labs are ordered for October, and he will be contacted to schedule the stress test. Patient Instructions - Continue taking metoprolol 50 mg daily for your blood pressure. - Continue taking atorvastatin for your high cholesterol. - I have sent a prescription for a small number of alprazolam tablets for you to use only as needed for severe anxiety. - For your ear and sinus pressure, start using the prescribed nasal spray once a day. - Only fill and start the antibiotic prescription if your ear symptoms do not improve after 3 days of using the nasal spray. - You will receive a call to schedule a cardiac stress test. - Please get your follow-up blood work done in October. - You will need to fast for 8 hours before this test. - Avoid taking medications like ibuprofen (Advil, Motrin) or Aleve. - It is safer for your kidneys to take Tylenol for pain or headaches. - Be mindful of your diet by limiting carbohydrates (bread, pasta, rice) and sweets to help control your blood sugar. - Try to re-establish a regular exercise routine, as it will help improve your overall health. - You received your flu shot today. Orders: Orders Hemoglobin A1c 1 Month R73.01 - Impaired fasting glucose CA stress test Today R07.9 - Chest pain, unspecified Influenza [id number] Immunization Today Z23 - Encounter for immunization Medications: New amoxicillin 875 mg PO BID 20 tabs 0RF R09.81 - Nasal congestion alprazolam 0.25 mg PO BEDTIME PRN 10 tabs 0RF sleep F41.1 - Generalized anxiety disorder fluticasone propionate 50 mcg/actuation (Flonase Allergy Relief) administer into each nostril 2 sprays intranasal DAILY 16 grams 1RF R09.81 - Nasal congestion
[2025-10-03 15:33] VITALS: BP 132/86; PULSE 64; RESP 14; TEMP 36.2; O2SAT 96; BMI 27.8
== END 2025-10-03 16:13 | disposition home or self-care (01) ==
LOC: HO.HMCH 15:28
PROVIDERS: PCP Internal Medicine; Visit Provider Internal Medicine
DX: I10 Essential (primary) hypertension (principal); E78.00 Pure hypercholesterolemia, unspecified; K76.0 Fatty (change of) liver, not elsewhere classified; F41.1 Generalized anxiety disorder; R73.01 Impaired fasting glucose; R07.9 Chest pain, unspecified; R09.81 Nasal congestion; Z23 Encounter for immunization

== ENCOUNTER → 2025-10-03 15:28 | Outpatient (BNVA) | payer OTHER, SELFPAY | PROVIDERS: PCP Internal Medicine; Visit Provider Internal Medicine | DX: Z23 Encounter for immunization (principal) | CPT/HCPCS: 90471; 90656 ==